=== PATIENT | male | born 1955 | race Caucasian/White ===

== ENCOUNTER → 2018-02-27 | Outpatient (CLI) | payer MEDICARE, OTHER ==
[~2018-02-27] MED LIST: ALLO300T PO; AMLO5TAB2 PO; CARB1TAB22 PO; DONE10TA7 PO; HYDR50TA13 PO; LITH300T3 PO; LITH600C PO; PRIM250T PO; QUET400T PO; RIVA20TA PO; SELE5TAB2 PO; TAMS-11 PO; ZOLP10TA PO; [UNRECOGNIZED DRUG - CODE] PO
[2018-02-27 10:42] LABS: BASOPHILS # (AUTO) 0.05 x10^3/uL (0-0.1); BASOPHILS % (AUTO) 1 % (0-1); EOSINOPHILS # (AUTO) 0.34 x10^3/uL (0-0.4); EOSINOPHILS % (AUTO) 4 % (1-7); LYMPHOCYTES # (AUTO) 1.44 x10^3/uL (1-3.4); LYMPHOCYTES % (AUTO) 16 % (22-44); MD NO; MEAN CORPUSCULAR HEMOGLOBIN 25.3 pg (27.5-34.5); MEAN CORPUSCULAR HGB CONC 32.2 g/dL (33.2-36.2); MEAN CORPUSCULAR VOLUME 78.6 fL (81-97); MEAN PLATELET VOLUME 7.8 fL (7.4-10.4); MONOCYTES # (AUTO) 0.56 x10^3/uL (0.2-0.8); MONOCYTES % (AUTO) 6 % (2-9); NEUTROPHILS # (AUTO) 6.88 x10^3/uL (1.8-6.8); NEUTROPHILS % (AUTO) 74 % (42-75); PLATELET COUNT 499 x10^3/uL (130-400); RED BLOOD COUNT 4.16 x10^6/uL (4.38-5.82); RED CELL DISTRIBUTION WIDTH 17.6 % (9.4-14.8)
[2018-02-27 10:50] LABS: ALANINE AMINOTRANSFERASE 13 U/L (12-78); ANION GAP 8 mmol/L (5-15); CHLORIDE 110 mmol/L (98-107); CREATININE 1.01 mg/dL (0.7-1.3)
[2018-02-27 10:52] LABS: ALKALINE PHOSPHATASE 77 U/L (45-117); BILIRUBIN,TOTAL 0.3 mg/dL (0.2-1.0); TOTAL PROTEIN 7.3 g/dL (6.4-8.2)
== END | disposition home or self-care (01) ==
LOC: STAR 09:06
PROVIDERS: ATTEND Urology
DX: Z01.818 Encounter for other preprocedural examination (principal); E27.5 Adrenomedullary hyperfunction
CPT/HCPCS: 36415; 80053; 85025; 93005

== ENCOUNTER 2018-03-05 10:14 | Inpatient (IN) | payer MEDICARE ==
[~2018-03-05] VITALS: Ht 185.4 cm; Wt 95.4 kg
[~2018-03-05 10:14] MED LIST changes: -AMLO5TAB2 PO; +AMLO5TAB7 PO
[2018-03-05] MEDS ORDERED: hydrOXyzine 50MG TABLET PO PRN (12:30)
[2018-03-05 12:46] LABS: BASOPHILS # (AUTO) 0.06 x10^3/uL (0-0.1); BASOPHILS % (AUTO) 1 % (0-1); EOSINOPHILS # (AUTO) 0.16 x10^3/uL (0-0.4); EOSINOPHILS % (AUTO) 2 % (1-7); LYMPHOCYTES # (AUTO) 1.81 x10^3/uL (1-3.4); LYMPHOCYTES % (AUTO) 21 % (22-44); MD NO; MEAN CORPUSCULAR HEMOGLOBIN 24.7 pg (27.5-34.5); MEAN CORPUSCULAR VOLUME 77.1 fL (81-97); MONOCYTES # (AUTO) 0.47 x10^3/uL (0.2-0.8); MONOCYTES % (AUTO) 5 % (2-9); NEUTROPHILS # (AUTO) 6.32 x10^3/uL (1.8-6.8); NEUTROPHILS % (AUTO) 72 % (42-75); PLATELET COUNT 532 x10^3/uL (130-400); RED BLOOD COUNT 4.07 x10^6/uL (4.38-5.82); RED CELL DISTRIBUTION WIDTH 17.7 % (9.4-14.8)
[2018-03-05 12:53] LABS: INTERNATIONAL NORMALIZED RATIO 1.03 (0.93-1.1); PROTHROMBIN TIME 10.7 Seconds (9.6-11.5)
[2018-03-05 12:54] LABS: ALANINE AMINOTRANSFERASE 21 U/L (12-78); ALBUMIN 3.9 g/dL (3.4-5.0); ANION GAP 6 mmol/L (5-15); CALCIUM 8.9 mg/dL (8.5-10.1); CHLORIDE 110 mmol/L (98-107)
[2018-03-05 12:57] LABS: ALKALINE PHOSPHATASE 83 U/L (45-117); BILIRUBIN,TOTAL 0.3 mg/dL (0.2-1.0); TOTAL PROTEIN 7.2 g/dL (6.4-8.2)
[2018-03-05 13:00] VITALS: BP 150/75
[2018-03-05] MEDS: TAMSULOSIN 0.4 MG CAP.ER.24H PO SCH (13:28)
[2018-03-05] MEDS: DONEPEZIL 10 MG TABLET PO SCH (13:28)
[2018-03-05] MEDS ORDERED: HEPARIN 25,000 UNITS/500ML PMX 500 ML ONE (17:56)
[2018-03-05] MEDS ORDERED: HEPARIN 5,000 UNITS/ML, 1ML IV PRN (18:00)
[2018-03-05] MEDS ORDERED: HEPARIN 25,000 UNITS/500ML PMX 500 ML IV PRN (18:00)
[2018-03-05] MEDS ORDERED: HEPARIN 5,000 UNITS/ML, 1ML IV ONE (18:00)
[2018-03-05] MEDS: PRIMIDONE 250 MG TABLET PO SCH (20:51)
[2018-03-05] MEDS: QUETIAPINE 200 MG TABLET PO SCH (20:51)
[2018-03-05] MEDS: SELEGILINE 5 MG CAPSULE PO SCH (20:53)
[2018-03-05] MEDS: CARBIDOPA/LEVODOPA 25 MG/100 MG TABLET PO SCH (20:54)
[2018-03-06] MEDS ORDERED: [UNRECOGNIZED DRUG - REMARK] MC ONE (01:00)
[2018-03-06 04:00] VITALS: BP 112/65
[2018-03-06 05:07] LABS: BASOPHILS # (AUTO) 0.08 x10^3/uL (0-0.1); BASOPHILS % (AUTO) 1 % (0-1); EOSINOPHILS # (AUTO) 0.26 x10^3/uL (0-0.4); EOSINOPHILS % (AUTO) 3 % (1-7); LYMPHOCYTES # (AUTO) 1.81 x10^3/uL (1-3.4); LYMPHOCYTES % (AUTO) 24 % (22-44); MD NO; MEAN CORPUSCULAR HEMOGLOBIN 24.7 pg (27.5-34.5); MEAN CORPUSCULAR HGB CONC 32.2 g/dL (33.2-36.2); MEAN CORPUSCULAR VOLUME 76.8 fL (81-97); MEAN PLATELET VOLUME 8.7 fL (7.4-10.4); MONOCYTES # (AUTO) 0.61 x10^3/uL (0.2-0.8); MONOCYTES % (AUTO) 8 % (2-9); NEUTROPHILS # (AUTO) 4.97 x10^3/uL (1.8-6.8); NEUTROPHILS % (AUTO) 64 % (42-75); PLATELET COUNT 515 x10^3/uL (130-400); RED BLOOD COUNT 4.02 x10^6/uL (4.38-5.82); RED CELL DISTRIBUTION WIDTH 17.7 % (9.4-14.8)
[2018-03-06 05:16] LABS: CALCIUM 8.8 mg/dL (8.5-10.1); CHLORIDE 111 mmol/L (98-107)
[2018-03-06 05:22] LABS: ALANINE AMINOTRANSFERASE 15 U/L (12-78); ALBUMIN 3.5 g/dL (3.4-5.0); ALKALINE PHOSPHATASE 77 U/L (45-117); ANION GAP 6 mmol/L (5-15); BILIRUBIN,TOTAL 0.3 mg/dL (0.2-1.0); CREATININE 0.99 mg/dL (0.7-1.3); TOTAL PROTEIN 6.4 g/dL (6.4-8.2)
[2018-03-06] MEDS ORDERED: MIDAZOLAM 1 MG/ML, 2ML ONE (06:37)
[2018-03-06] MEDS ORDERED: FENTANYL PF 250 MCG/5ML ONE (06:37)
[2018-03-06] MEDS ORDERED: NITROPRUSSIDE 25 MG/ML, 2ML ONE (06:50)
[2018-03-06] MEDS ORDERED: NITROGLYCERIN 5 MG/ML, 10ML ONE (06:50)
[2018-03-06] MEDS ORDERED: THROMBIN 5,000 UNIT VIAL TP ONE (06:55)
[2018-03-06] MEDS ORDERED: BUPIVACAINE/PF-EPI 0.25% 1:200K ONE ×2 (06:55→08:39)
[2018-03-06] MEDS ORDERED: PHENTOLAMINE MESYLATE 5 MG VIAL IV ONE (07:00)
[2018-03-06] MEDS ORDERED: LIDOCAINE GEL 2%, 5ML ONE (07:02)
[2018-03-06] MEDS ORDERED: ROCURONIUM 10 MG/ML,10ML ONE (07:29)
[2018-03-06] MEDS ORDERED: PROPOFOL 10 MG/ML, 20ML ONE (07:29)
[2018-03-06] MEDS ORDERED: DEXAMETHASONE 4 MG/ML, 1ML ONE (07:29)
[2018-03-06] MEDS ORDERED: NEOSTIGMINE 1 MG/ML, 10ML ONE (07:29)
[2018-03-06] MEDS ORDERED: GLYCOPYRROLATE 0.2MG/1ML, 5ML ONE (07:29)
[2018-03-06] MEDS ORDERED: CEFAZOLIN 1,000 MG ONE (07:29)
[2018-03-06] MEDS ORDERED: ONDANSETRON 2MG/ML, 2ML ONE (07:29)
[2018-03-06] MEDS: CARBIDOPA/LEVODOPA 25 MG/100 MG TABLET PO SCH ×2 (07:34→21:00)
[2018-03-06] MEDS: DONEPEZIL 10 MG TABLET PO SCH (07:34)
[2018-03-06] MEDS: ALLOPURINOL 300 MG TABLET PO SCH (09:00)
[2018-03-06] MEDS: TAMSULOSIN 0.4 MG CAP.ER.24H PO SCH (09:00)
[2018-03-06] MEDS ORDERED: HYDROmorphone 1 MG/ML, 1ML IV PRN (10:30)
[2018-03-06] MEDS ORDERED: MIDAZOLAM 1 MG/ML, 2ML IV PRN (10:30)
[2018-03-06] MEDS ORDERED: ACETAMINOPHEN 325 MG TABLET PO PRN (10:30)
[2018-03-06] MEDS ORDERED: PROMETHAZINE 25 MG/ML, 1ML IV PRN (10:30)
[2018-03-06] MEDS ORDERED: MEPERIDINE/PF 25MG/0.5ML IVPush PRN (10:30)
[2018-03-06] MEDS ORDERED: OXYcodone 5 MG/5 ML ORAL.SOL UDC PO PRN (10:30)
[2018-03-06] MEDS ORDERED: ONDANSETRON ODT 8 MG PO PRN (10:30)
[2018-03-06] MEDS ORDERED: LABETALOL 5MG/ML, 20ML IV PRN (10:30)
[2018-03-06] MEDS ORDERED: LABETALOL 5MG/ML, 20ML ONE (11:01)
[2018-03-06] MEDS ORDERED: OXYcodone 5 MG/5 ML ORAL.SOL UDC ONE (11:10)
[2018-03-06] MEDS ORDERED: FENTANYL PF 100 MCG/2ML ONE (11:10)
[2018-03-06] MEDS: FENTANYL PF 100 MCG/2ML IV PRN ×2 (11:13→11:45)
[2018-03-06] MEDS ORDERED: ONDANSETRON 2MG/ML, 2ML IV PRN (12:30)
[2018-03-06] MEDS ORDERED: D5%-0.45NACL+KCL 20MEQ 1,000 ML IV SCH (12:30)
[2018-03-06] MEDS: KETOROLAC 30 MG/1 ML IV SCH ×2 (12:44→16:47)
[2018-03-06] MEDS: morphine SULFATE 10 MG/ML, 1ML IV PRN ×3 (13:30→21:02)
[2018-03-06] MEDS: CEFAZOLIN PMX 1GM/50ML 50 ML IVPB SCH ×2 (13:34→20:44)
[2018-03-06] MEDS: HYDROcodone/APAP 5/325 TABLET PO PRN (16:47)
[2018-03-06] MEDS: QUETIAPINE 200 MG TABLET PO SCH (20:50)
[2018-03-06] MEDS: SELEGILINE 5 MG CAPSULE PO SCH (20:50)
[2018-03-06] MEDS: PRIMIDONE 250 MG TABLET PO SCH (20:51)
[2018-03-06] MEDS: LITHIUM CARBONATE 300 MG CAPSULE PO SCH (20:51)
[2018-03-06] MEDS ORDERED: CARBIDOPA/LEVODOPA 25 MG/100 MG TABLET PO SCH (21:00)
[2018-03-06] MEDS ORDERED: PHENOXYBENZAMINE PO SCH (21:00)
[2018-03-06] MEDS: ZOLPIDEM 10MG TABLET PO PRN (21:39)
[2018-03-07] MEDS: KETOROLAC 30 MG/1 ML IV SCH ×5 (00:59→23:37)
[2018-03-07] MEDS: HYDROcodone/APAP 5/325 TABLET PO PRN ×4 (03:46→17:35)
[2018-03-07 04:00] VITALS: BP 110/62
[2018-03-07 05:38] LABS: ANION GAP 9 mmol/L (5-15); CHLORIDE 104 mmol/L (98-107); CREATININE 1.05 mg/dL (0.7-1.3)
[2018-03-07] MEDS: LITHIUM CARBONATE 300 MG CAPSULE PO SCH ×2 (08:05→20:40)
[2018-03-07] MEDS: CARBIDOPA/LEVODOPA 25 MG/100 MG TABLET PO SCH ×2 (08:05→20:39)
[2018-03-07] MEDS: TAMSULOSIN 0.4 MG CAP.ER.24H PO SCH (08:05)
[2018-03-07] MEDS: DONEPEZIL 10 MG TABLET PO SCH (08:05)
[2018-03-07] MEDS: ALLOPURINOL 300 MG TABLET PO SCH (08:05)
[2018-03-07] MEDS ORDERED: AMLODIPINE 5 MG TABLET PO SCH (09:00)
[2018-03-07] MEDS: RIVAROXABAN 20 MG TABLET PO SCH (13:33)
[2018-03-07 13:39] VITALS: BP 112/68
[2018-03-07 20:34] VITALS: BP 148/77
[2018-03-07] MEDS: QUETIAPINE 200 MG TABLET PO SCH (20:39)
[2018-03-07] MEDS: PRIMIDONE 250 MG TABLET PO SCH (20:39)
[2018-03-07] MEDS: SELEGILINE 5 MG CAPSULE PO SCH (20:40)
[2018-03-07] MEDS: OXYcodone/APAP 5/325MG TABLET PO PRN (21:32)
[2018-03-07] MEDS: ZOLPIDEM 10MG TABLET PO PRN (22:32)
[2018-03-08 03:48] VITALS: BP 117/66
[2018-03-08 05:31] LABS: ANION GAP 4 mmol/L (5-15); CALCIUM 8.3 mg/dL (8.5-10.1); CHLORIDE 108 mmol/L (98-107); CREATININE 1.02 mg/dL (0.7-1.3)
[2018-03-08] MEDS: KETOROLAC 30 MG/1 ML IV SCH (06:10)
[2018-03-08] MEDS: RIVAROXABAN 20 MG TABLET PO SCH (06:11)
[2018-03-08] MEDS: OXYcodone/APAP 5/325MG TABLET PO PRN ×4 (06:11→20:04)
[2018-03-08] MEDS: TAMSULOSIN 0.4 MG CAP.ER.24H PO SCH (07:59)
[2018-03-08] MEDS: CARBIDOPA/LEVODOPA 25 MG/100 MG TABLET PO SCH ×2 (08:00→20:04)
[2018-03-08] MEDS: DONEPEZIL 10 MG TABLET PO SCH (08:00)
[2018-03-08] MEDS: LITHIUM CARBONATE 300 MG CAPSULE PO SCH ×2 (08:00→20:03)
[2018-03-08] MEDS: AMLODIPINE 5 MG TABLET PO SCH (08:00)
[2018-03-08] MEDS: ALLOPURINOL 300 MG TABLET PO SCH (08:02)
[2018-03-08] MEDS: ONDANSETRON ODT 4 MG PO PRN ×3 (11:05→20:04)
[2018-03-08] MEDS ORDERED: TETRAHYDROZOLINE OPHTH 0.05% 15ML EACHEYE PRN (20:00)
[2018-03-08] MEDS ORDERED: PRIMIDONE 50 MG TABLET ONE (20:01)
[2018-03-08] MEDS: DOCUSATE 100 MG CAPSULE PO SCH (20:03)
[2018-03-08] MEDS: SELEGILINE 5 MG CAPSULE PO SCH (20:03)
[2018-03-08] MEDS: PRIMIDONE 250 MG TABLET PO SCH (20:04)
[2018-03-08] MEDS: QUETIAPINE 200 MG TABLET PO SCH (20:10)
[2018-03-08] MEDS ORDERED: NAPHAZOLINE/PHENIRAMINE OPHTH EACHEYE PRN (22:00)
[2018-03-09] MEDS: OXYcodone/APAP 5/325MG TABLET PO PRN ×3 (01:02→10:43)
[2018-03-09] MEDS: ONDANSETRON ODT 4 MG PO PRN ×3 (01:03→10:43)
[2018-03-09] MEDS ORDERED: ALBUTEROL/IPRATROPIUM 2.5MG/0.5MG, 3 ML ONE (04:07)
[2018-03-09 05:20] VITALS: BP 119/66
[2018-03-09] MEDS: RIVAROXABAN 20 MG TABLET PO SCH (05:51)
[2018-03-09] MEDS ORDERED: OXYC-302 PO (09:55)
[2018-03-09] MEDS: DOCUSATE 100 MG CAPSULE PO SCH (09:56)
[2018-03-09] MEDS: TAMSULOSIN 0.4 MG CAP.ER.24H PO SCH (09:56)
[2018-03-09] MEDS: LITHIUM CARBONATE 300 MG CAPSULE PO SCH (09:56)
[2018-03-09] MEDS: ALLOPURINOL 300 MG TABLET PO SCH (09:56)
[2018-03-09] MEDS ORDERED: ONDA4TAB7 PO (09:56)
[2018-03-09] MEDS: AMLODIPINE 5 MG TABLET PO SCH (09:56)
[2018-03-09] MEDS: CARBIDOPA/LEVODOPA 25 MG/100 MG TABLET PO SCH (09:56)
[2018-03-09] MEDS: DONEPEZIL 10 MG TABLET PO SCH (09:57)
== END 2018-03-09 11:04 | disposition home or self-care (01) | DRG 614 ==
LOC: CCU 10:14 → 4NOR 03-07 13:30
PROVIDERS: ADMIT Urology; ATTEND Urology
PROC: 8E0W4CZ Robotic Assisted Procedure of Trunk Region, Percutaneous Endoscopic Approach (ICD-10-PCS; 2018-03-06)
PROC: 03HY32Z Insertion of Monitoring Device into Upper Artery, Percutaneous Approach (ICD-10-PCS; 2018-03-06)
PROC: 4A133B1 Monitoring of Arterial Pressure, Peripheral, Percutaneous Approach (ICD-10-PCS; 2018-03-06)
PROC: 4A133J1 Monitoring of Arterial Pulse, Peripheral, Percutaneous Approach (ICD-10-PCS; 2018-03-06)
PROC: 0GB34ZZ Excision of Right Adrenal Gland, Percutaneous Endoscopic Approach (ICD-10-PCS; principal; 2018-03-06 07:30)
DX: D35.01 Benign neoplasm of right adrenal gland (principal); R71.0 Precipitous drop in hematocrit; I10 Essential (primary) hypertension; F31.9 Bipolar disorder, unspecified; G20 Parkinson's disease; K59.00 Constipation, unspecified; K66.0 Peritoneal adhesions (postprocedural) (postinfection); K82.8 Other specified diseases of gallbladder; Z86.711 Personal history of pulmonary embolism; Z86.718 Personal history of other venous thrombosis and embolism; Z90.49 Acquired absence of other specified parts of digestive tract
CPT/HCPCS: 36415; 71045; 80048; 80053; 83735; 84100; 85014; 85018; 85025; 85520; 85610; 87081; 88307; 93005; 93970; G0378; J0690; J1100; J1644; J1885; J2250; J2405; J2704; J2710; J3010; J3490; Q0162; J2270; J3480; J7050

== ENCOUNTER 2018-05-21 14:55 | Emergency (ER) | payer MEDICARE ==
[~2018-05-21] VITALS: Ht 185.4 cm; Wt 100.0 kg
[~2018-05-21 14:55] MED LIST changes: +ONDA4TAB7 PO; +OXYC-302 PO
[2018-05-21 14:59] VITALS: BP 131/95
== END 2018-05-21 15:42 | disposition home or self-care (01) ==
LOC: ED 15:36
DX: F39 Unspecified mood [affective] disorder (principal); I10 Essential (primary) hypertension
CPT/HCPCS: 99284

== ENCOUNTER 2018-09-09 17:34 | Inpatient (IN) | payer MEDICARE ==
[~2018-09-09] VITALS: Ht 188 cm; Wt 93.4 kg
[~2018-09-09 17:34] MED LIST changes: +AMLO-150 PO; -AMLO5TAB7 PO
--- NOTE | 2018-09-09 18:20 | NUR ---
BIB [facility] W/ CO ETOH AND DESIRE FOR DETOX. PER FRIEND, PT W/ EXTENSIVE PSYCH HX, HX OF HEAVY ETOH AND HX OF RESPIRATORY FAILURE W/ ETOH DETOX. PT REPORTS NON-COMPLIANT WITH ALL MEDS X 'TWENTY DAYS' NO SIGNS OF RESPIRATORY DISTRESS PRESENTLY. PT AWAKE/ALERT, BUT FORGETFUL, SPEAKING IN FULL SENTENCES. PT AMBULATORY, NON-TREMULOUS, NOT TACHY. PT FREQUENTLY AGGITATED AND HAS PERIODS OF HITTING HIMSELF ON HIS HEAD. BP/SPO2/ECG MONITORING IN PLACE. PT GROWS AGGITATED WITH BP MONITORING, UNABLE TO TAKE ORAL TEMP AT THIS TIME.
[2018-09-09] MEDS ORDERED: LORazepam 2 MG/ML, 1ML ONE ×2 (18:25→19:08)
[2018-09-09] MEDS ORDERED: THIAMINE 100MG TABLET ONE (18:26)
[2018-09-09] MEDS: LORazepam 2 MG/ML, 1ML IVPush PRN ×2 (18:29→19:11)
[2018-09-09] MEDS ORDERED: THIAMINE 100MG TABLET PO ONE (18:30)
[2018-09-09] MEDS ORDERED: SODIUM CHLORIDE FLUSH 10ML SYR IVF ONE (18:30)
--- NOTE | 2018-09-09 18:30 | NUR ---
PT MEDICATED PER EMAR FOR AGGITATION.
[2018-09-09 18:32] LABS: BASOPHILS # (AUTO) 0.03 x10^3/uL (0-0.1); BASOPHILS % (AUTO) 0 % (0-1); EOSINOPHILS # (AUTO) 0.33 x10^3/uL (0-0.4); EOSINOPHILS % (AUTO) 4 % (1-7); LYMPHOCYTES # (AUTO) 2.91 x10^3/uL (1-3.4); LYMPHOCYTES % (AUTO) 35 % (22-44); MD NO; MEAN CORPUSCULAR HEMOGLOBIN 28.6 pg (27.5-34.5); MEAN CORPUSCULAR HGB CONC 33.7 g/dL (33.2-36.2); MEAN CORPUSCULAR VOLUME 84.9 fL (81-97); MEAN PLATELET VOLUME 7.4 fL (7.4-10.4); MONOCYTES # (AUTO) 0.41 x10^3/uL (0.2-0.8); MONOCYTES % (AUTO) 5 % (2-9); NEUTROPHILS # (AUTO) 4.56 x10^3/uL (1.8-6.8); NEUTROPHILS % (AUTO) 55 % (42-75); PLATELET COUNT 458 x10^3/uL (130-400); RED BLOOD COUNT 5.05 x10^6/uL (4.38-5.82); RED CELL DISTRIBUTION WIDTH 17.3 % (9.4-14.8)
[2018-09-09 18:37] LABS: MICROSCOPIC AUTO
[2018-09-09 18:42] LABS: ACETAMINOPHEN < 2 mcg/mL (10-30); ALANINE AMINOTRANSFERASE 71 U/L (12-78); ALBUMIN 4.1 g/dL (3.4-5.0); ANION GAP 8 mmol/L (5-15); CALCIUM 8.2 mg/dL (8.5-10.1); CHLORIDE 115 mmol/L (98-107); CREATININE 0.93 mg/dL (0.7-1.3); SALICYLATE LEVEL < 1.7 mg/dL (2.8-20.0)
[2018-09-09 18:43] LABS: CULTURE INDICATED? YES
[2018-09-09 18:47] LABS: AMPHETAMINE SCREEN, URINE Negative (Negative); BARBITURATE SCREEN, URINE Negative (Negative); BENZODIAZEPINE SCREEN, URINE Negative (Negative); CANNABINOID SCREEN, URINE Negative (Negative); COCAINE SCREEN, URINE Negative (Negative); METHADONE SCREEN, URINE Negative (Negative)
[2018-09-09 18:48] LABS: ALKALINE PHOSPHATASE 128 U/L (45-117); BILIRUBIN,TOTAL 0.4 mg/dL (0.2-1.0); TOTAL PROTEIN 7.4 g/dL (6.4-8.2)
[2018-09-09 18:51] LABS: OPIATE SCREEN, URINE Negative (Negative)
[2018-09-09] MEDS ORDERED: QUET400T PO (18:51)
--- NOTE | 2018-09-09 19:14 | NUR ---
PT MEDICATED PER EMAR FOR CONTINUED AGGITATION. SPO2 >90% ON RA. RR WNL.
[2018-09-09] MEDS ORDERED: SODIUM CHLORIDE 0.9% 1,000 ML IV ONE (19:24)
[2018-09-09] MEDS ORDERED: SODIUM CHLORIDE FLUSH 10ML SYR IVF PRN (19:30)
--- NOTE | 2018-09-09 19:51 | NUR ---
IVF HUNG. PT MOSTLY SLEEPY, EVEN/REGULAR RESPIRATIONS NOTED. PT SPO2 80'S ON RA. PT PLACED ON 3L BY NC W IMMEDIATE IMPROVEMENT IN SPO2. PT ARROUSABLE TO PHYSICAL STIM
--- NOTE | 2018-09-09 20:23 | NUR ---
PT REMOVED ALL MONITORING AND IS STANDING AT BEDSIDE, STEADILY, REQUESTING FOOD. PT ASSISTED BACK TO [facility], FOOD PROVIDED. SPO2/ECG MONITORING RE-APPLIED. FALL PRECAUTIONS REVIEWED WITH PT.
[2018-09-09 21:43] VITALS: BP 137/84
[2018-09-09] MEDS ORDERED: LORazepam 2 MG/ML, 1ML IVPush ONE (22:30)
[2018-09-09] MEDS ORDERED: POLYETHYLENE GLYCOL 17 GM PACKET PO PRN (23:00)
[2018-09-09] MEDS ORDERED: ONDANSETRON 2MG/ML, 2ML IVPush PRN (23:00)
[2018-09-09] MEDS ORDERED: hydrALAzine 20 MG/ML, 1ML IVPush PRN (23:00)
[2018-09-09] MEDS ORDERED: HALOPERIDOL 5 MG/ML IV PRN (23:00)
[2018-09-09] MEDS ORDERED: ACETAMINOPHEN 325 MG TABLET PO PRN (23:00)
[2018-09-09] MEDS: LITHIUM 300 MG MC SCH (23:30)
[2018-09-09] MEDS: SELEGILINE 5 MG CAPSULE PO SCH (23:46)
[2018-09-09] MEDS: ENOXAPARIN 40 MG/0.4 ML SQ SCH (23:46)
[2018-09-10] MEDS ORDERED: POTASSIUM CHLORIDE 20 MEQ, MAGNESIUM SULFATE 1 GM, THIAMINE 200 MG, FOLIC ACID 1 MG, MV... IV SCH (04:00)
[2018-09-10 04:27] VITALS: BP 164/78
[2018-09-10] MEDS ORDERED: LORazepam 2 MG/ML, 1ML IV PRN (04:30)
[2018-09-10] MEDS ORDERED: LORazepam 1MG TABLET PO PRN (04:30)
[2018-09-10] MEDS: LORazepam 2 MG/ML, 1ML IV PRN ×4 (04:42→22:37)
[2018-09-10 05:23] LABS: BASOPHILS # (AUTO) 0.16 x10^3/uL (0-0.1); BASOPHILS % (AUTO) 2 % (0-1); EOSINOPHILS # (AUTO) 0.21 x10^3/uL (0-0.4); EOSINOPHILS % (AUTO) 3 % (1-7); LYMPHOCYTES # (AUTO) 2.62 x10^3/uL (1-3.4); LYMPHOCYTES % (AUTO) 37 % (22-44); MD NO; MEAN CORPUSCULAR HEMOGLOBIN 28.4 pg (27.5-34.5); MEAN CORPUSCULAR HGB CONC 33.5 g/dL (33.2-36.2); MEAN CORPUSCULAR VOLUME 84.8 fL (81-97); MONOCYTES # (AUTO) 0.42 x10^3/uL (0.2-0.8); MONOCYTES % (AUTO) 6 % (2-9); NEUTROPHILS # (AUTO) 3.72 x10^3/uL (1.8-6.8); NEUTROPHILS % (AUTO) 52 % (42-75); PLATELET COUNT 367 x10^3/uL (130-400); RED BLOOD COUNT 4.66 x10^6/uL (4.38-5.82); RED CELL DISTRIBUTION WIDTH 16.9 % (9.4-14.8)
[2018-09-10 05:36] LABS: CALCIUM 8.1 mg/dL (8.5-10.1); CHLORIDE 112 mmol/L (98-107)
[2018-09-10 05:42] LABS: ALANINE AMINOTRANSFERASE 60 U/L (12-78); ALBUMIN 3.4 g/dL (3.4-5.0); ALKALINE PHOSPHATASE 116 U/L (45-117); ANION GAP 8 mmol/L (5-15); BILIRUBIN,TOTAL 0.5 mg/dL (0.2-1.0); TOTAL PROTEIN 6.6 g/dL (6.4-8.2)
[2018-09-10] MEDS: LITHIUM 300 MG MC SCH (07:30)
[2018-09-10 07:32] VITALS: BP 173/90
[2018-09-10] MEDS: TEMPLATE NON-FORMULARY MED. (Quetiapine Fumarate** 400 MG) PO SCH (08:32)
[2018-09-10] MEDS: TAMSULOSIN 0.4 MG CAP.ER.24H PO SCH (08:37)
[2018-09-10] MEDS: AMLODIPINE 5 MG TABLET PO SCH (08:37)
[2018-09-10] MEDS: ALLOPURINOL 300 MG TABLET PO SCH (08:37)
[2018-09-10] MEDS: CARBIDOPA/LEVODOPA 25 MG/100 MG TABLET PO SCH ×2 (08:37→20:44)
[2018-09-10] MEDS: LORazepam 1MG TABLET PO PRN (08:43)
[2018-09-10] MEDS ORDERED: LITHIUM CARBONATE 300 MG TABLET.ER PO SCH ×2 (09:00→21:00)
[2018-09-10] MEDS: LITHIUM CARBONATE 300 MG TABLET.ER PO SCH ×2 (11:11→20:43)
[2018-09-10 13:50] VITALS: BP 153/79
[2018-09-10 18:54] VITALS: BP 159/82
[2018-09-10] MEDS: SELEGILINE 5 MG CAPSULE PO SCH (20:43)
[2018-09-10] MEDS: QUETIAPINE 200 MG TABLET PO SCH (20:43)
[2018-09-10] MEDS: DONEPEZIL 10 MG TABLET PO SCH (20:43)
[2018-09-10] MEDS: THIAMINE 100MG TABLET PO SCH (20:43)
[2018-09-10] MEDS: hydrOXyzine 50MG TABLET PO SCH (20:44)
[2018-09-10] MEDS: PRIMIDONE 250 MG TABLET PO SCH (20:44)
[2018-09-10] MEDS: ENOXAPARIN 40 MG/0.4 ML SQ SCH (22:58)
[2018-09-11] MEDS: LORazepam 2 MG/ML, 1ML IV PRN ×5 (00:30→22:19)
[2018-09-11] MEDS ORDERED: LORazepam 2 MG/ML, 1ML IV PRN (00:30)
[2018-09-11 01:25] VITALS: BP 128/71
[2018-09-11] MEDS: TEMPLATE NON-FORMULARY MED. (Quetiapine Fumarate** 400 MG) PO SCH (07:21)
[2018-09-11] MEDS ORDERED: SODIUM CHLORIDE 0.9%, 500ML IVBOLUS ONE (11:30)
[2018-09-11] MEDS: SODIUM CHLORIDE 0.9% 1,000 ML IV SCH ×2 (12:50→19:30)
[2018-09-11] MEDS: LITHIUM CARBONATE 300 MG TABLET.ER PO SCH ×2 (13:06→20:31)
[2018-09-11] MEDS: CARBIDOPA/LEVODOPA 25 MG/100 MG TABLET PO SCH ×2 (13:09→20:31)
[2018-09-11] MEDS: CHLORDIAZEPOXIDE 25 MG CAPSULE PO SCH ×2 (13:09→17:33)
[2018-09-11] MEDS: AMLODIPINE 5 MG TABLET PO SCH (13:10)
[2018-09-11] MEDS: FOLIC ACID 1 MG TABLET PO SCH (13:10)
[2018-09-11] MEDS: MULTIVITAMIN 1 TABLET PO SCH (13:10)
[2018-09-11] MEDS: ALLOPURINOL 300 MG TABLET PO SCH (13:11)
[2018-09-11] MEDS: THIAMINE 100MG TABLET PO SCH ×2 (13:16→20:31)
[2018-09-11] MEDS: TAMSULOSIN 0.4 MG CAP.ER.24H PO SCH (13:16)
[2018-09-11 15:04] VITALS: BP 151/83
[2018-09-11 17:03] VITALS: BP 157/89
[2018-09-11 18:55] VITALS: BP 150/92
[2018-09-11] MEDS: DONEPEZIL 10 MG TABLET PO SCH (20:31)
[2018-09-11] MEDS: hydrOXyzine 50MG TABLET PO SCH (20:31)
[2018-09-11] MEDS: SELEGILINE 5 MG CAPSULE PO SCH (20:31)
[2018-09-11] MEDS: PRIMIDONE 250 MG TABLET PO SCH (20:31)
[2018-09-11] MEDS: QUETIAPINE 200 MG TABLET PO SCH (20:31)
[2018-09-11] MEDS: ENOXAPARIN 40 MG/0.4 ML SQ SCH (22:45)
[2018-09-12] MEDS: CHLORDIAZEPOXIDE 25 MG CAPSULE PO SCH ×4 (00:27→20:04)
[2018-09-12] MEDS: LORazepam 2 MG/ML, 1ML IV PRN ×3 (02:28→21:30)
[2018-09-12 07:09] VITALS: BP 154/84
[2018-09-12] MEDS: TEMPLATE NON-FORMULARY MED. (Quetiapine Fumarate** 400 MG) PO SCH (09:00)
[2018-09-12] MEDS: MULTIVITAMIN 1 TABLET PO SCH (11:09)
[2018-09-12] MEDS: ALLOPURINOL 300 MG TABLET PO SCH (11:10)
[2018-09-12] MEDS: FOLIC ACID 1 MG TABLET PO SCH (11:10)
[2018-09-12] MEDS: AMLODIPINE 5 MG TABLET PO SCH (11:10)
[2018-09-12] MEDS: LITHIUM CARBONATE 300 MG TABLET.ER PO SCH ×2 (11:10→20:03)
[2018-09-12] MEDS: CARBIDOPA/LEVODOPA 25 MG/100 MG TABLET PO SCH ×2 (11:10→20:04)
[2018-09-12] MEDS: THIAMINE 100MG TABLET PO SCH ×2 (11:10→20:03)
[2018-09-12] MEDS: TAMSULOSIN 0.4 MG CAP.ER.24H PO SCH (11:10)
[2018-09-12 12:59] LABS: CULTURE INDICATED? YES; MICROSCOPIC INDICATED
[2018-09-12 13:29] VITALS: BP 133/79
[2018-09-12 14:21] LABS: CHLORIDE 108 mmol/L (98-107)
[2018-09-12 14:29] LABS: ALANINE AMINOTRANSFERASE 15 U/L (12-78); ALBUMIN 3.2 g/dL (3.4-5.0); ALKALINE PHOSPHATASE 100 U/L (45-117); ANION GAP 6 mmol/L (5-15); BILIRUBIN,TOTAL 0.8 mg/dL (0.2-1.0); CALCIUM 8.4 mg/dL (8.5-10.1); CREATININE 0.93 mg/dL (0.7-1.3); TOTAL PROTEIN 6.2 g/dL (6.4-8.2)
[2018-09-12] MEDS: SODIUM CHLORIDE 0.9% 1,000 ML IV SCH (16:14)
[2018-09-12 18:31] VITALS: BP 152/73
[2018-09-12] MEDS: QUETIAPINE 200 MG TABLET PO SCH (20:02)
[2018-09-12] MEDS: hydrOXyzine 50MG TABLET PO SCH (20:02)
[2018-09-12] MEDS: SELEGILINE 5 MG CAPSULE PO SCH (20:03)
[2018-09-12] MEDS: PRIMIDONE 250 MG TABLET PO SCH (20:03)
[2018-09-12] MEDS: DONEPEZIL 10 MG TABLET PO SCH (20:03)
[2018-09-12] MEDS: ENOXAPARIN 40 MG/0.4 ML SQ SCH (20:04)
[2018-09-13] MEDS: SODIUM CHLORIDE 0.9% 1,000 ML IV SCH ×2 (00:20→17:10)
[2018-09-13 02:00] VITALS: BP 133/67
[2018-09-13] MEDS: CHLORDIAZEPOXIDE 25 MG CAPSULE PO SCH ×4 (05:30→20:34)
[2018-09-13 06:43] VITALS: BP 133/78
[2018-09-13 07:23] LABS: CULTURE INDICATED? YES; MICROSCOPIC INDICATED
[2018-09-13] MEDS: TEMPLATE NON-FORMULARY MED. (Quetiapine Fumarate** 400 MG) PO SCH (09:00)
[2018-09-13] MEDS: TAMSULOSIN 0.4 MG CAP.ER.24H PO SCH (11:17)
[2018-09-13] MEDS: FOLIC ACID 1 MG TABLET PO SCH (11:18)
[2018-09-13] MEDS: LITHIUM CARBONATE 300 MG TABLET.ER PO SCH ×2 (11:19→20:35)
[2018-09-13] MEDS: SULFAMETH./TRIMETHOPRIM DS 800MG/160MG TABLET PO SCH ×2 (11:20→20:35)
[2018-09-13] MEDS: LORazepam 1MG TABLET PO PRN (11:20)
[2018-09-13] MEDS: ALLOPURINOL 300 MG TABLET PO SCH (11:21)
[2018-09-13] MEDS: AMLODIPINE 5 MG TABLET PO SCH (11:23)
[2018-09-13] MEDS: CARBIDOPA/LEVODOPA 25 MG/100 MG TABLET PO SCH ×2 (11:24→20:35)
[2018-09-13] MEDS: MULTIVITAMIN 1 TABLET PO SCH (11:25)
[2018-09-13] MEDS: THIAMINE 100MG TABLET PO SCH ×2 (11:26→20:35)
[2018-09-13 13:57] VITALS: BP 121/72
[2018-09-13 19:08] VITALS: BP 149/80
[2018-09-13] MEDS: QUETIAPINE 200 MG TABLET PO SCH (20:34)
[2018-09-13] MEDS: DONEPEZIL 10 MG TABLET PO SCH (20:34)
[2018-09-13] MEDS: SELEGILINE 5 MG CAPSULE PO SCH (20:34)
[2018-09-13] MEDS: PRIMIDONE 250 MG TABLET PO SCH (20:35)
[2018-09-13] MEDS: ENOXAPARIN 40 MG/0.4 ML SQ SCH (20:36)
[2018-09-13] MEDS: hydrOXyzine 50MG TABLET PO SCH (20:38)
[2018-09-14 01:50] VITALS: BP 123/71
[2018-09-14] MEDS: CHLORDIAZEPOXIDE 25 MG CAPSULE PO SCH (06:00)
[2018-09-14] MEDS: SODIUM CHLORIDE 0.9% 1,000 ML IV SCH (07:00)
[2018-09-14 07:17] VITALS: BP 121/76
[2018-09-14] MEDS: SULFAMETH./TRIMETHOPRIM DS 800MG/160MG TABLET PO SCH (08:38)
[2018-09-14] MEDS: ALLOPURINOL 300 MG TABLET PO SCH (08:39)
[2018-09-14] MEDS: MULTIVITAMIN 1 TABLET PO SCH (08:39)
[2018-09-14] MEDS: LITHIUM CARBONATE 300 MG TABLET.ER PO SCH (08:39)
[2018-09-14] MEDS: AMLODIPINE 5 MG TABLET PO SCH (08:42)
[2018-09-14] MEDS: TEMPLATE NON-FORMULARY MED. (Quetiapine Fumarate** 400 MG) PO SCH (08:43)
[2018-09-14] MEDS: FOLIC ACID 1 MG TABLET PO SCH (08:43)
[2018-09-14] MEDS: TAMSULOSIN 0.4 MG CAP.ER.24H PO SCH (08:43)
[2018-09-14] MEDS: THIAMINE 100MG TABLET PO SCH (08:44)
[2018-09-14] MEDS: CARBIDOPA/LEVODOPA 25 MG/100 MG TABLET PO SCH (08:44)
[2018-09-14] MEDS ORDERED: SULF-169 PO (10:35)
[2018-09-14] MEDS ORDERED: FOLI-17 PO (10:35)
[2018-09-14] MEDS ORDERED: THIA100T67 PO (10:35)
== END 2018-09-14 12:27 | disposition home or self-care (01) | DRG 689 ==
LOC: ED 18:42 → EDIP 19:24 → 4WST 21:30 → DCLOUNGE 09-14 11:59
PROVIDERS: ADMIT Family Medicine; ATTEND Family Medicine
PROC: 0T9B70Z Drainage of Bladder with Drainage Device, Via Natural or Artificial Opening (ICD-10-PCS; principal; 2018-09-12)
DX: N39.0 Urinary tract infection, site not specified (principal); K85.20 Alcohol induced acute pancreatitis without necrosis or infection; F10.221 Alcohol dependence with intoxication delirium; E87.2 Acidosis; F10.239 Alcohol dependence with withdrawal, unspecified; B95.8 Unspecified staphylococcus as the cause of diseases classified elsewhere; E86.0 Dehydration; F03.90 Unspecified dementia, unspecified severity, without behavioral disturbance, psychotic disturbance, mood disturbance, and anxiety; F31.9 Bipolar disorder, unspecified; F41.1 Generalized anxiety disorder; I10 Essential (primary) hypertension; N40.0 Benign prostatic hyperplasia without lower urinary tract symptoms; Z23 Encounter for immunization; G20 Parkinson's disease
CPT/HCPCS: 36415; 70450; 71045; 80053; 80178; 80307; 80329; 81001; 82140; 83690; 83735; 84100; 85025; 87077; 87086; 87186; 90656; 93005; 96374; 96376; 99285; G0378; J1650; J3411; J3475; J3480; G0480; J1630; J2060; J7030; J7040

== ENCOUNTER 2018-12-02 18:47 | Inpatient (IN) | payer MEDICARE ==
[~2018-12-02] VITALS: Ht 188 cm; Wt 91.7 kg
[~2018-12-02 18:47] MED LIST changes: +ACAM333T7 PO; +FOLI-17 PO; +LORA-445 PO; +SULF-169 PO; +THIA100T67 PO; +TRAZ150T62 PO; +TRAZ50TA66 PO
[2018-12-02 19:19] LABS: BASOPHILS # (AUTO) 0.18 x10^3/uL (0-0.1); BASOPHILS % (AUTO) 2 % (0-1); EOSINOPHILS # (AUTO) 0.15 x10^3/uL (0-0.4); EOSINOPHILS % (AUTO) 1 % (1-7); LYMPHOCYTES # (AUTO) 3.01 x10^3/uL (1-3.4); LYMPHOCYTES % (AUTO) 27 % (22-44); MD NO; MEAN CORPUSCULAR HEMOGLOBIN 28.5 pg (27.5-34.5); MEAN CORPUSCULAR HGB CONC 32.5 g/dL (33.2-36.2); MEAN CORPUSCULAR VOLUME 87.8 fL (81-97); MEAN PLATELET VOLUME 7.5 fL (7.4-10.4); MONOCYTES # (AUTO) 1.08 x10^3/uL (0.2-0.8); MONOCYTES % (AUTO) 10 % (2-9); NEUTROPHILS # (AUTO) 6.94 x10^3/uL (1.8-6.8); NEUTROPHILS % (AUTO) 61 % (42-75); PLATELET COUNT 543 x10^3/uL (130-400); RED BLOOD COUNT 5.17 x10^6/uL (4.38-5.82); RED CELL DISTRIBUTION WIDTH 16.5 % (9.4-14.8)
[2018-12-02 19:25] LABS: ALANINE AMINOTRANSFERASE 72 U/L (12-78); ALBUMIN 4.1 g/dL (3.4-5.0); ANION GAP 13 mmol/L (5-15); CALCIUM 8.5 mg/dL (8.5-10.1); CHLORIDE 115 mmol/L (98-107); CREATININE 1.52 mg/dL (0.7-1.3)
[2018-12-02 19:28] LABS: ALKALINE PHOSPHATASE 91 U/L (45-117); BILIRUBIN,TOTAL 0.6 mg/dL (0.2-1.0); TOTAL PROTEIN 7.7 g/dL (6.4-8.2)
[2018-12-02 19:29] LABS: SALICYLATE LEVEL < 1.7 mg/dL (2.8-20.0)
--- NOTE | 2018-12-02 20:08 | NUR ---
PT BROUGHT IN BY FRIEND. PT WAS DISCHARGED FROM [facility] SUNDAY. PT HAS NOT BEEN TAKING MEDS AND HAS BEEN DRINKING ALL WEEKEND. PT STATES HE IS NOT SUICIDAL. PT STATES HE CAME HERE BECAUSE HE NEEDS MENTAL HELP AND THAT HE DOES NOT LIKE HIMSELF RIGHT NOW.
[2018-12-02] MEDS ORDERED: POTASSIUM CHLORIDE 20 MEQ TAB.ER.PRT PO ONE (20:30)
--- NOTE | 2018-12-02 20:47 | NUR ---
TP: TELE PSYCH WHEN SOBER
--- NOTE | 2018-12-02 21:09 | NUR ---
ER MD IN ROOM EXAMINING PT AND TALKING TO HIM ABOUT RECENT HOSPITALIZATION AND WHAT PT DID SINCE DISCHARGE. PT AGITATED WITH ER MD. UOB TO GIVE URINE SAMPLE AND THEN BACK IN [facility] EATING DINNER. DOORS CLOSED OVER SUPPLIES FOR PT SAFETY. SITTER OUTSIDE ROOM. REPOPRT TO VERA PAUL
--- NOTE | 2018-12-02 21:20 | NUR ---
REPORT OF PT FROM HUMBERTO ARORA AND ASSUMING CARE OF PT. PT AGITATED. REQUEST PRN FROM DR. HARDING
[2018-12-02] MEDS ORDERED: LORazepam 1MG TABLET PO ONE (21:30)
[2018-12-02] MEDS ORDERED: LORazepam 1MG TABLET ONE (21:31)
--- NOTE | 2018-12-02 21:33 | NUR ---
PT MEDICATED PER MAR FOR AGITATION
[2018-12-02 21:40] LABS: AMPHETAMINE SCREEN, URINE Negative (Negative); BARBITURATE SCREEN, URINE Positive (Negative); BENZODIAZEPINE SCREEN, URINE Negative (Negative); CANNABINOID SCREEN, URINE Negative (Negative); COCAINE SCREEN, URINE Negative (Negative); METHADONE SCREEN, URINE Negative (Negative); OPIATE SCREEN, URINE Negative (Negative)
--- NOTE | 2018-12-02 21:41 | NUR ---
A FEMALE IDENTIFYING HERSELF PT'S "DUAL POWER OF [employer]", DEMANDING THAT THE PT DOES NOT GET DC FROM THE ED ([phone].) THIS FEMALE STATED THAT THE PT WAS RELEASED FROM THE [facility] "TOO EARLY" AND SHE WARNED STAFFED THAT HE WILL "END UP IN THE ER WITHIN 72 HOURS." THIS FEMALE ALSO STATED THAT SHE DOES NOT WANT THE ED TO "ACCIDENTALLY RELEASE PT FROM ER." THIS FEMALE WAS INFORMED THAT PT WILL NOT BE "ACCIDENTALLY RELEASE" AND ED PHYSICIAN AND STAFF WILL BE USING THEIR CLINICAL JUDGEMENT. THIS FEMALE KEPT REPEATING HERSELF AND REFUSING TO LISTEN TO STAFF AT TIMES. STAFF INFORMED HER THAT THE INFORMATION GIVEN TO BHU STAFF WILL BE PASSED ON TO ED STAFF. SPOKE TO VERA PAUL ABOUT CONVERSATION WITH THIS FEMALE.
[2018-12-02] MEDS ORDERED: POTASSIUM CHLORIDE 20 MEQ TAB.ER.PRT ONE (21:46)
--- NOTE | 2018-12-02 21:54 | NUR ---
PT MEDICATED PER MAR.
--- NOTE | 2018-12-02 22:22 | NUR ---
PT RESTING CALMLY IN [facility] AT THIS TIME; TINGN. SITTER OUTSIDE OF ROOM FOR DIRECT OBSERVATION OF PT.
--- NOTE | 2018-12-03 00:17 | NUR ---
PT VSS AND UPDATED IN EMR. PT HAS SITTER OUTSIDE OF ROOM AT THIS TIME FOR DIRECT OBSERVATION OF PT.
--- NOTE | 2018-12-03 01:28 | NUR ---
PT RESTING IN [facility] AT THIS TIME; LEXIE. PT VERBALIZES UNDERSTANDING OF NEED FOR TELEPSYCH CONSULT. PT DENIES ANY OTHER NEEDS AT THIS TIME.
--- NOTE | 2018-12-03 02:01 | NUR ---
TELSPSYCH CALLED. [id number] BOT PLACED AT BEDSIDE.
--- NOTE | 2018-12-03 02:05 | NUR ---
REPORT OF PT TO DR. DUKE WITH SOC. TELEPSYCH CONSULT WILL BE INITIATED SHORTLY. TELEPSYCH MONITOR IS SETUP IN PT ROOM AT THIS TIME.
--- NOTE | 2018-12-03 02:17 | NUR ---
PT SPEAKING WITH PSYCHIATRIST VIA TELEPSYCH. SITTER OUTSIDE OF ROOM WITH PT FOR DIRECT OBSERVATION.
[2018-12-03] MEDS ORDERED: QUETIAPINE 100MG TABLET ONE (03:35)
--- NOTE | 2018-12-03 03:44 | NUR ---
PT MEDICATED PER MAR. PT HAS SITTER OUTSIDE OF ROOM FOR DIRECT OBSERVATION.
[2018-12-03] MEDS ORDERED: ONDANSETRON 2MG/ML, 2ML IVPush PRN (04:00)
[2018-12-03] MEDS ORDERED: FOLIC ACID 5 MG/ML IM ONE (04:00)
[2018-12-03] MEDS ORDERED: LORazepam 2 MG/ML, 1ML IV PRN ×4 (04:00)
--- NOTE | 2018-12-03 04:03 | NUR ---
PT RESTING COMFORTABLY IN [facility] AT THIS TIME; LEXIE. SITTER OUTSIDE OF ROOM FOR DIRECT OBSERVATION OF PT.
[2018-12-03] MEDS ORDERED: LORazepam 2 MG/ML, 1ML ONE (04:41)
--- NOTE | 2018-12-03 04:58 | NUR ---
WA PROTOCOL INITIATED. PT ASSESSED AND SCORED. PT MEDICATED PER MAR PER PROTOCOL. SITTER OUTSIDE OF PT ROOM AT THIS TIME.
[2018-12-03] MEDS: LORazepam 0.5MG TABLET PO SCH ×4 (06:00→20:04)
[2018-12-03 06:48] VITALS: BP 167/88
[2018-12-03] MEDS: LORazepam 2 MG/ML, 1ML IV PRN ×3 (08:47→22:08)
[2018-12-03] MEDS ORDERED: POTASSIUM CHLORIDE 20 MEQ TAB.ER.PRT PO ONE (09:30)
[2018-12-03] MEDS: SODIUM CHLORIDE 0.9% 1,000 ML IV SCH ×2 (09:30→17:30)
[2018-12-03] MEDS: CARBIDOPA/LEVODOPA 25 MG/100 MG TABLET PO SCH ×2 (10:16→20:03)
[2018-12-03] MEDS: FOLIC ACID 1 MG TABLET PO SCH (10:16)
[2018-12-03] MEDS: TAMSULOSIN 0.4 MG CAP.ER.24H PO SCH (10:16)
[2018-12-03] MEDS: DONEPEZIL 10 MG TABLET PO SCH (10:16)
[2018-12-03] MEDS: MULTIVITAMINS/MINERALS TABLET PO SCH (10:17)
[2018-12-03] MEDS: ALLOPURINOL 300 MG TABLET PO SCH (10:17)
[2018-12-03] MEDS: AMLODIPINE 5 MG TABLET PO SCH (10:17)
[2018-12-03 14:52] VITALS: BP 130/68
[2018-12-03 19:15] VITALS: BP 163/96
[2018-12-03] MEDS: SELEGILINE 5 MG CAPSULE PO SCH (20:03)
[2018-12-03] MEDS: LITHIUM CARBONATE 300 MG TABLET.ER PO SCH (20:03)
[2018-12-03] MEDS: QUETIAPINE 200 MG TABLET PO SCH (20:04)
[2018-12-03] MEDS: PRIMIDONE 250 MG TABLET PO SCH (20:04)
[2018-12-03] MEDS: hydrOXyzine 50MG TABLET PO SCH (20:05)
[2018-12-03] MEDS ORDERED: QUETIAPINE 100MG TABLET PO ONE (21:00)
[2018-12-04 01:23] VITALS: BP 158/91
[2018-12-04] MEDS: LORazepam 0.5MG TABLET PO SCH ×4 (05:55→20:31)
[2018-12-04 06:28] LABS: BASOPHILS # (AUTO) 0.04 x10^3/uL (0-0.1); BASOPHILS % (AUTO) 1 % (0-1); EOSINOPHILS # (AUTO) 0.29 x10^3/uL (0-0.4); EOSINOPHILS % (AUTO) 5 % (1-7); LYMPHOCYTES # (AUTO) 1.59 x10^3/uL (1-3.4); LYMPHOCYTES % (AUTO) 27 % (22-44); MD NO; MEAN CORPUSCULAR HEMOGLOBIN 28.3 pg (27.5-34.5); MEAN CORPUSCULAR HGB CONC 32.5 g/dL (33.2-36.2); MEAN CORPUSCULAR VOLUME 86.8 fL (81-97); MEAN PLATELET VOLUME 7.7 fL (7.4-10.4); MONOCYTES # (AUTO) 0.53 x10^3/uL (0.2-0.8); MONOCYTES % (AUTO) 9 % (2-9); NEUTROPHILS # (AUTO) 3.34 x10^3/uL (1.8-6.8); NEUTROPHILS % (AUTO) 58 % (42-75); PLATELET COUNT 293 x10^3/uL (130-400); RED BLOOD COUNT 4.36 x10^6/uL (4.38-5.82); RED CELL DISTRIBUTION WIDTH 15.5 % (9.4-14.8)
[2018-12-04 06:41] LABS: CALCIUM 8.4 mg/dL (8.5-10.1); CHLORIDE 111 mmol/L (98-107)
[2018-12-04 06:44] LABS: ANION GAP 8 mmol/L (5-15); CREATININE 0.88 mg/dL (0.7-1.3)
[2018-12-04 07:31] VITALS: BP 143/80
[2018-12-04] MEDS: ALLOPURINOL 300 MG TABLET PO SCH (10:50)
[2018-12-04] MEDS: CARBIDOPA/LEVODOPA 25 MG/100 MG TABLET PO SCH ×2 (10:50→20:31)
[2018-12-04] MEDS: MULTIVITAMINS/MINERALS TABLET PO SCH (10:50)
[2018-12-04] MEDS: THIAMINE 100 MG in DEXTROSE 5% 50 ML IVPB SCH (10:50)
[2018-12-04] MEDS: DONEPEZIL 10 MG TABLET PO SCH (10:50)
[2018-12-04] MEDS: TAMSULOSIN 0.4 MG CAP.ER.24H PO SCH (10:51)
[2018-12-04] MEDS: AMLODIPINE 5 MG TABLET PO SCH (10:51)
[2018-12-04] MEDS: FOLIC ACID 1 MG TABLET PO SCH (10:51)
[2018-12-04] MEDS: LORazepam 2 MG/ML, 1ML IV PRN (12:46)
[2018-12-04 16:22] VITALS: BP 157/87
[2018-12-04 18:37] VITALS: BP 157/89
[2018-12-04] MEDS: LITHIUM CARBONATE 300 MG TABLET.ER PO SCH (20:31)
[2018-12-04] MEDS: QUETIAPINE 200 MG TABLET PO SCH (20:31)
[2018-12-04] MEDS: hydrOXyzine 50MG TABLET PO SCH (20:31)
[2018-12-04] MEDS: SELEGILINE 5 MG CAPSULE PO SCH (20:31)
[2018-12-04] MEDS: PRIMIDONE 250 MG TABLET PO SCH (20:31)
[2018-12-05 00:51] VITALS: BP 155/89
[2018-12-05] MEDS: LORazepam 0.5MG TABLET PO SCH ×4 (06:03→21:30)
[2018-12-05 06:51] VITALS: BP 134/76
[2018-12-05] MEDS: CARBIDOPA/LEVODOPA 25 MG/100 MG TABLET PO SCH ×2 (10:25→21:30)
[2018-12-05] MEDS: DONEPEZIL 10 MG TABLET PO SCH (10:25)
[2018-12-05] MEDS: ALLOPURINOL 300 MG TABLET PO SCH (10:25)
[2018-12-05] MEDS: FOLIC ACID 1 MG TABLET PO SCH (10:25)
[2018-12-05] MEDS: MULTIVITAMINS/MINERALS TABLET PO SCH (10:25)
[2018-12-05] MEDS: THIAMINE 100 MG in DEXTROSE 5% 50 ML IVPB SCH (10:25)
[2018-12-05] MEDS: TAMSULOSIN 0.4 MG CAP.ER.24H PO SCH (10:26)
[2018-12-05] MEDS: AMLODIPINE 5 MG TABLET PO SCH (10:26)
[2018-12-05 14:13] VITALS: BP 151/72
[2018-12-05 20:08] VITALS: BP 160/91
[2018-12-05] MEDS: QUETIAPINE 200 MG TABLET PO SCH (21:30)
[2018-12-05] MEDS: LITHIUM CARBONATE 300 MG TABLET.ER PO SCH (21:30)
[2018-12-05] MEDS: PRIMIDONE 250 MG TABLET PO SCH (21:31)
[2018-12-05] MEDS: hydrOXyzine 50MG TABLET PO SCH (21:31)
[2018-12-05] MEDS: SELEGILINE 5 MG CAPSULE PO SCH (21:31)
[2018-12-06 01:44] LABS: ANION GAP 8 mmol/L (5-15); CALCIUM 8.4 mg/dL (8.5-10.1); CHLORIDE 107 mmol/L (98-107); CREATININE 0.94 mg/dL (0.7-1.3)
[2018-12-06 02:29] VITALS: BP 149/86
[2018-12-06 08:25] VITALS: BP 147/75
[2018-12-06] MEDS: TAMSULOSIN 0.4 MG CAP.ER.24H PO SCH (09:07)
[2018-12-06] MEDS: FOLIC ACID 1 MG TABLET PO SCH (09:07)
[2018-12-06] MEDS: DONEPEZIL 10 MG TABLET PO SCH (09:07)
[2018-12-06] MEDS: LORazepam 0.5MG TABLET PO SCH (09:07)
[2018-12-06] MEDS: THIAMINE 100 MG in DEXTROSE 5% 50 ML IVPB SCH (09:07)
[2018-12-06] MEDS: AMLODIPINE 5 MG TABLET PO SCH (09:07)
[2018-12-06] MEDS: CARBIDOPA/LEVODOPA 25 MG/100 MG TABLET PO SCH (09:07)
[2018-12-06] MEDS: ALLOPURINOL 300 MG TABLET PO SCH (09:08)
[2018-12-06] MEDS: MULTIVITAMINS/MINERALS TABLET PO SCH (09:08)
== END 2018-12-06 12:33 | DRG 897 ==
LOC: ED 21:17 → EDIP 12-03 02:52 → 4EST 12-03 06:27
PROVIDERS: ADMIT Internal Medicine; ATTEND Internal Medicine
DX: F10.239 Alcohol dependence with withdrawal, unspecified (principal); R45.851 Suicidal ideations; F10.229 Alcohol dependence with intoxication, unspecified; F02.80 Dementia in other diseases classified elsewhere, unspecified severity, without behavioral disturbance, psychotic disturbance, mood disturbance, and anxiety; F31.9 Bipolar disorder, unspecified; F41.1 Generalized anxiety disorder; F90.9 Attention-deficit hyperactivity disorder, unspecified type; G20 Parkinson's disease; G25.81 Restless legs syndrome; G40.909 Epilepsy, unspecified, not intractable, without status epilepticus; I10 Essential (primary) hypertension; M10.9 Gout, unspecified; N40.0 Benign prostatic hyperplasia without lower urinary tract symptoms; Z63.8 Other specified problems related to primary support group; Z72.0 Tobacco use; Z79.899 Other long term (current) drug therapy; Z82.5 Family history of asthma and other chronic lower respiratory diseases; Z88.6 Allergy status to analgesic agent; Z88.8 Allergy status to other drugs, medicaments and biological substances
CPT/HCPCS: 36415; 80048; 80053; 80178; 80307; 83735; 84100; 85025; 96372; 96374; G0378; J3411; J2060; J7030

== ENCOUNTER 2018-12-03 04:00 | Inpatient (IN) | payer MEDICARE ==
[~2018-12-03] VITALS: Ht 188 cm; Wt 94.4 kg
[2018-12-05] MEDS ORDERED: DOCUSATE 100 MG CAPSULE PO PRN (18:00)
[2018-12-05] MEDS ORDERED: POLYETHYLENE GLYCOL 17 GM PACKET PO PRN (18:00)
[2018-12-05] MEDS ORDERED: BISACODYL 10 MG SUPP PR PRN (18:00)
[2018-12-05] MEDS ORDERED: ONDANSETRON ODT 4 MG PO PRN (18:00)
[2018-12-05] MEDS ORDERED: TRAZODONE 50MG TABLET PO PRN (18:30)
[2018-12-05] MEDS ORDERED: PRIMIDONE 50 MG TABLET PO SCH (21:00)
[2018-12-05] MEDS ORDERED: LITHIUM CARBONATE 300 MG CAPSULE PO SCH (21:00)
[2018-12-05] MEDS ORDERED: ACAMPROSATE 333 MG TABLET.DR PO SCH (21:00)
[2018-12-05] MEDS ORDERED: CARBIDOPA/LEVODOPA 25 MG/100 MG TABLET PO SCH (21:00)
[2018-12-05] MEDS ORDERED: QUETIAPINE 200 MG TABLET PO SCH (21:00)
[2018-12-05] MEDS ORDERED: hydrOXyzine 50MG TABLET PO SCH (21:00)
[2018-12-05] MEDS ORDERED: SELEGILINE 5 MG CAPSULE PO SCH (21:00)
[2018-12-06] MEDS ORDERED: DONEPEZIL 10 MG TABLET PO SCH (09:00)
[2018-12-06] MEDS ORDERED: FOLIC ACID 1 MG TABLET PO SCH (09:00)
[2018-12-06] MEDS ORDERED: THIAMINE 100MG TABLET PO SCH (09:00)
[2018-12-06 12:38] VITALS: BP 151/97
[2018-12-06 13:06] VITALS: BP 151/97
[2018-12-06] MEDS: ACAMPROSATE 333 MG TABLET.DR PO SCH ×2 (16:26→20:11)
[2018-12-06 19:47] VITALS: BP 141/87
[2018-12-06] MEDS: hydrOXyzine 50MG TABLET PO SCH (20:08)
[2018-12-06] MEDS: ACETAMINOPHEN 325 MG TABLET PO PRN (20:11)
[2018-12-06] MEDS: CARBIDOPA/LEVODOPA 25 MG/100 MG TABLET PO SCH (20:11)
[2018-12-06] MEDS: QUETIAPINE 200 MG TABLET PO SCH (20:11)
[2018-12-06] MEDS ORDERED: SELEGILINE 5 MG CAPSULE PO SCH (21:00)
[2018-12-06] MEDS ORDERED: LITHIUM CARBONATE 300 MG CAPSULE PO SCH (21:00)
[2018-12-06] MEDS ORDERED: PRIMIDONE 50 MG TABLET PO SCH (21:00)
[2018-12-07] MEDS: ACETAMINOPHEN 325 MG TABLET PO PRN ×2 (04:01→08:58)
[2018-12-07 07:25] VITALS: BP 143/83
[2018-12-07] MEDS: ACAMPROSATE 333 MG TABLET.DR PO SCH ×4 (08:57→20:28)
[2018-12-07] MEDS: CARBIDOPA/LEVODOPA 25 MG/100 MG TABLET PO SCH ×2 (08:58→20:28)
[2018-12-07] MEDS ORDERED: FOLIC ACID 1 MG TABLET PO SCH (09:00)
[2018-12-07] MEDS ORDERED: DONEPEZIL 10 MG TABLET PO SCH (09:00)
[2018-12-07] MEDS: DONEPEZIL 10 MG TABLET PO SCH (09:00)
[2018-12-07] MEDS: THIAMINE 100MG TABLET PO SCH ×2 (09:00→10:22)
[2018-12-07] MEDS: FOLIC ACID 1 MG TABLET PO SCH (09:00)
[2018-12-07] MEDS ORDERED: THIAMINE 100MG TABLET PO SCH (09:00)
[2018-12-07] MEDS ORDERED: hydrALAzine 20 MG/ML, 1ML IVPush PRN (09:30)
[2018-12-07] MEDS: TAMSULOSIN 0.4 MG CAP.ER.24H PO SCH (10:22)
[2018-12-07] MEDS: ALLOPURINOL 300 MG TABLET PO SCH (10:22)
[2018-12-07] MEDS: AMLODIPINE 5 MG TABLET PO SCH (10:22)
[2018-12-07] MEDS: LORazepam 0.5MG TABLET PO SCH ×3 (11:13→20:27)
[2018-12-07 19:36] VITALS: BP 134/73
[2018-12-07] MEDS: hydrOXyzine 50MG TABLET PO SCH (20:27)
[2018-12-07] MEDS: QUETIAPINE 200 MG TABLET PO SCH ×2 (20:27→20:30)
[2018-12-07] MEDS: MED PO SCH (20:27)
[2018-12-07] MEDS: TRAZODONE 50MG TABLET PO SCH (20:28)
[2018-12-07] MEDS: SELEGILINE 5 MG CAPSULE PO SCH (20:28)
[2018-12-07] MEDS: PRIMIDONE 250 MG TABLET PO SCH (20:28)
[2018-12-07] MEDS ORDERED: PRIMIDONE 250 MG TABLET PO SCH (21:00)
[2018-12-08] MEDS: LORazepam 0.5MG TABLET PO SCH ×4 (05:00→20:18)
[2018-12-08] MEDS: ACETAMINOPHEN 325 MG TABLET PO PRN ×3 (05:00→22:11)
[2018-12-08 07:20] VITALS: BP 125/75
[2018-12-08] MEDS: TAMSULOSIN 0.4 MG CAP.ER.24H PO SCH (08:39)
[2018-12-08] MEDS: AMLODIPINE 5 MG TABLET PO SCH (08:39)
[2018-12-08] MEDS: FOLIC ACID 1 MG TABLET PO SCH (08:39)
[2018-12-08] MEDS: ACAMPROSATE 333 MG TABLET.DR PO SCH ×3 (08:39→20:17)
[2018-12-08] MEDS: DONEPEZIL 10 MG TABLET PO SCH (08:39)
[2018-12-08] MEDS: CARBIDOPA/LEVODOPA 25 MG/100 MG TABLET PO SCH ×2 (08:40→20:18)
[2018-12-08] MEDS: THIAMINE 100MG TABLET PO SCH (08:40)
[2018-12-08] MEDS: ALLOPURINOL 300 MG TABLET PO SCH (08:40)
[2018-12-08 19:55] VITALS: BP 169/92
[2018-12-08] MEDS: MED PO SCH (20:18)
[2018-12-08] MEDS: hydrOXyzine 50MG TABLET PO SCH (20:18)
[2018-12-08] MEDS: TRAZODONE 50MG TABLET PO SCH (20:18)
[2018-12-08] MEDS: SELEGILINE 5 MG CAPSULE PO SCH (20:18)
[2018-12-08] MEDS: QUETIAPINE 200 MG TABLET PO SCH ×2 (20:18)
[2018-12-08] MEDS: PRIMIDONE 250 MG TABLET PO SCH (20:18)
[2018-12-09] MEDS: LORazepam 0.5MG TABLET PO SCH ×4 (05:39→20:23)
[2018-12-09 07:05] VITALS: BP 121/73
[2018-12-09] MEDS: ACAMPROSATE 333 MG TABLET.DR PO SCH ×3 (08:40→20:23)
[2018-12-09] MEDS: CARBIDOPA/LEVODOPA 25 MG/100 MG TABLET PO SCH ×2 (08:41→20:23)
[2018-12-09] MEDS: TAMSULOSIN 0.4 MG CAP.ER.24H PO SCH (08:41)
[2018-12-09] MEDS: AMLODIPINE 5 MG TABLET PO SCH (08:41)
[2018-12-09] MEDS: FOLIC ACID 1 MG TABLET PO SCH (08:41)
[2018-12-09] MEDS: THIAMINE 100MG TABLET PO SCH (08:41)
[2018-12-09] MEDS: ALLOPURINOL 300 MG TABLET PO SCH (08:41)
[2018-12-09] MEDS: DONEPEZIL 10 MG TABLET PO SCH (08:41)
[2018-12-09] MEDS: ACETAMINOPHEN 325 MG TABLET PO PRN ×2 (12:32→21:40)
[2018-12-09 19:40] VITALS: BP 155/95
[2018-12-09] MEDS: SELEGILINE 5 MG CAPSULE PO SCH (20:23)
[2018-12-09] MEDS: TRAZODONE 50MG TABLET PO SCH (20:23)
[2018-12-09] MEDS: PRIMIDONE 250 MG TABLET PO SCH (20:23)
[2018-12-09] MEDS: hydrOXyzine 50MG TABLET PO SCH (20:23)
[2018-12-09] MEDS: MED PO SCH (20:23)
[2018-12-09] MEDS: QUETIAPINE 200 MG TABLET PO SCH ×2 (20:24→20:26)
[2018-12-10] MEDS: LORazepam 0.5MG TABLET PO SCH ×4 (05:30→20:32)
[2018-12-10 07:09] VITALS: BP 134/87
[2018-12-10] MEDS: ALLOPURINOL 300 MG TABLET PO SCH (08:54)
[2018-12-10] MEDS: TAMSULOSIN 0.4 MG CAP.ER.24H PO SCH (08:55)
[2018-12-10] MEDS: ACETAMINOPHEN 325 MG TABLET PO PRN (08:55)
[2018-12-10] MEDS: ACAMPROSATE 333 MG TABLET.DR PO SCH ×3 (08:55→20:33)
[2018-12-10] MEDS: DONEPEZIL 10 MG TABLET PO SCH (08:55)
[2018-12-10] MEDS: FOLIC ACID 1 MG TABLET PO SCH (08:55)
[2018-12-10] MEDS: AMLODIPINE 5 MG TABLET PO SCH (08:55)
[2018-12-10] MEDS: THIAMINE 100MG TABLET PO SCH (08:56)
[2018-12-10] MEDS: CARBIDOPA/LEVODOPA 25 MG/100 MG TABLET PO SCH ×2 (08:56→20:32)
[2018-12-10] MEDS: MED PO SCH (20:32)
[2018-12-10] MEDS: hydrOXyzine 50MG TABLET PO SCH (20:32)
[2018-12-10] MEDS: QUETIAPINE 200 MG TABLET PO SCH ×2 (20:32)
[2018-12-10] MEDS: TRAZODONE 50MG TABLET PO SCH (20:32)
[2018-12-10] MEDS: PRIMIDONE 250 MG TABLET PO SCH (20:33)
[2018-12-10] MEDS: SELEGILINE 5 MG CAPSULE PO SCH (20:33)
[2018-12-11] MEDS: ACETAMINOPHEN 325 MG TABLET PO PRN ×2 (03:08→20:33)
[2018-12-11] MEDS: LORazepam 0.5MG TABLET PO SCH ×4 (05:24→20:28)
[2018-12-11 07:09] VITALS: BP 119/71
[2018-12-11] MEDS: DONEPEZIL 10 MG TABLET PO SCH (08:50)
[2018-12-11] MEDS: AMLODIPINE 5 MG TABLET PO SCH (08:50)
[2018-12-11] MEDS: ALLOPURINOL 300 MG TABLET PO SCH (08:50)
[2018-12-11] MEDS: TAMSULOSIN 0.4 MG CAP.ER.24H PO SCH (08:51)
[2018-12-11] MEDS: ACAMPROSATE 333 MG TABLET.DR PO SCH ×3 (08:51→20:29)
[2018-12-11] MEDS: CARBIDOPA/LEVODOPA 25 MG/100 MG TABLET PO SCH ×2 (08:51→20:29)
[2018-12-11] MEDS: FOLIC ACID 1 MG TABLET PO SCH (08:51)
[2018-12-11] MEDS: THIAMINE 100MG TABLET PO SCH (08:51)
[2018-12-11 19:54] VITALS: BP 157/88
[2018-12-11] MEDS: hydrOXyzine 50MG TABLET PO SCH (20:28)
[2018-12-11] MEDS: PRIMIDONE 250 MG TABLET PO SCH (20:28)
[2018-12-11] MEDS: QUETIAPINE 200 MG TABLET PO SCH ×2 (20:28)
[2018-12-11] MEDS: TRAZODONE 50MG TABLET PO SCH (20:28)
[2018-12-11] MEDS: SELEGILINE 5 MG CAPSULE PO SCH (20:29)
[2018-12-11] MEDS: MED PO SCH (20:29)
[2018-12-12] MEDS: ACETAMINOPHEN 325 MG TABLET PO PRN ×2 (04:02→09:41)
[2018-12-12] MEDS: LORazepam 0.5MG TABLET PO SCH ×4 (05:16→20:44)
[2018-12-12 07:09] VITALS: BP 112/72
[2018-12-12] MEDS: CARBIDOPA/LEVODOPA 25 MG/100 MG TABLET PO SCH ×2 (09:41→20:44)
[2018-12-12] MEDS: ACAMPROSATE 333 MG TABLET.DR PO SCH ×3 (09:41→20:44)
[2018-12-12] MEDS: ALLOPURINOL 300 MG TABLET PO SCH (09:42)
[2018-12-12] MEDS: THIAMINE 100MG TABLET PO SCH (09:42)
[2018-12-12] MEDS: AMLODIPINE 5 MG TABLET PO SCH (09:42)
[2018-12-12] MEDS: TAMSULOSIN 0.4 MG CAP.ER.24H PO SCH (09:42)
[2018-12-12] MEDS: DONEPEZIL 10 MG TABLET PO SCH (09:42)
[2018-12-12] MEDS: FOLIC ACID 1 MG TABLET PO SCH (09:42)
[2018-12-12 19:43] VITALS: BP 144/83
[2018-12-12] MEDS: MED PO SCH (20:43)
[2018-12-12] MEDS: PRIMIDONE 250 MG TABLET PO SCH (20:43)
[2018-12-12] MEDS: TRAZODONE 50MG TABLET PO SCH (20:43)
[2018-12-12] MEDS: SELEGILINE 5 MG CAPSULE PO SCH (20:43)
[2018-12-12] MEDS: QUETIAPINE 200 MG TABLET PO SCH ×2 (20:44→21:00)
[2018-12-12] MEDS: hydrOXyzine 50MG TABLET PO SCH (20:44)
[2018-12-13] MEDS: LORazepam 0.5MG TABLET PO SCH ×4 (06:08→20:42)
[2018-12-13 07:15] VITALS: BP 137/90
[2018-12-13] MEDS: AMLODIPINE 5 MG TABLET PO SCH (08:51)
[2018-12-13] MEDS: FOLIC ACID 1 MG TABLET PO SCH (08:51)
[2018-12-13] MEDS: CARBIDOPA/LEVODOPA 25 MG/100 MG TABLET PO SCH ×2 (08:51→20:43)
[2018-12-13] MEDS: THIAMINE 100MG TABLET PO SCH (08:51)
[2018-12-13] MEDS: TAMSULOSIN 0.4 MG CAP.ER.24H PO SCH (08:52)
[2018-12-13] MEDS: ALLOPURINOL 300 MG TABLET PO SCH (08:52)
[2018-12-13] MEDS: ACAMPROSATE 333 MG TABLET.DR PO SCH ×3 (08:52→20:42)
[2018-12-13] MEDS: DONEPEZIL 10 MG TABLET PO SCH (08:52)
[2018-12-13] MEDS: ACETAMINOPHEN 325 MG TABLET PO PRN (09:07)
[2018-12-13 19:35] VITALS: BP 132/80
[2018-12-13] MEDS: QUETIAPINE 200 MG TABLET PO SCH ×2 (20:42→20:49)
[2018-12-13] MEDS: SELEGILINE 5 MG CAPSULE PO SCH (20:42)
[2018-12-13] MEDS: hydrOXyzine 50MG TABLET PO SCH (20:43)
[2018-12-13] MEDS: TRAZODONE 50MG TABLET PO SCH (20:43)
[2018-12-13] MEDS: MED PO SCH (20:43)
[2018-12-13] MEDS: PRIMIDONE 250 MG TABLET PO SCH (20:43)
[2018-12-14] MEDS: LORazepam 0.5MG TABLET PO SCH ×4 (05:24→20:57)
[2018-12-14 07:03] VITALS: BP 112/65
[2018-12-14] MEDS: ACAMPROSATE 333 MG TABLET.DR PO SCH ×3 (08:52→20:56)
[2018-12-14] MEDS: FOLIC ACID 1 MG TABLET PO SCH (08:52)
[2018-12-14] MEDS: THIAMINE 100MG TABLET PO SCH (08:52)
[2018-12-14] MEDS: TAMSULOSIN 0.4 MG CAP.ER.24H PO SCH (08:52)
[2018-12-14] MEDS: ACETAMINOPHEN 325 MG TABLET PO PRN (08:53)
[2018-12-14] MEDS: DONEPEZIL 10 MG TABLET PO SCH (08:53)
[2018-12-14] MEDS: AMLODIPINE 5 MG TABLET PO SCH (08:53)
[2018-12-14] MEDS: ALLOPURINOL 300 MG TABLET PO SCH (08:53)
[2018-12-14] MEDS: CARBIDOPA/LEVODOPA 25 MG/100 MG TABLET PO SCH ×2 (08:53→20:57)
[2018-12-14 19:48] VITALS: BP 148/82
[2018-12-14] MEDS: MED PO SCH (20:56)
[2018-12-14] MEDS: TRAZODONE 50MG TABLET PO SCH (20:56)
[2018-12-14] MEDS: SELEGILINE 5 MG CAPSULE PO SCH (20:57)
[2018-12-14] MEDS: QUETIAPINE 200 MG TABLET PO SCH ×2 (20:57→20:59)
[2018-12-14] MEDS: PRIMIDONE 250 MG TABLET PO SCH (21:00)
[2018-12-14] MEDS: hydrOXyzine 50MG TABLET PO SCH (21:00)
[2018-12-15] MEDS: LORazepam 0.5MG TABLET PO SCH ×4 (05:51→20:07)
[2018-12-15 07:12] VITALS: BP 132/73
[2018-12-15] MEDS: FOLIC ACID 1 MG TABLET PO SCH (08:29)
[2018-12-15] MEDS: ACAMPROSATE 333 MG TABLET.DR PO SCH ×3 (08:29→20:07)
[2018-12-15] MEDS: ALLOPURINOL 300 MG TABLET PO SCH (08:29)
[2018-12-15] MEDS: CARBIDOPA/LEVODOPA 25 MG/100 MG TABLET PO SCH ×2 (08:29→20:07)
[2018-12-15] MEDS: TAMSULOSIN 0.4 MG CAP.ER.24H PO SCH (08:29)
[2018-12-15] MEDS: THIAMINE 100MG TABLET PO SCH (08:29)
[2018-12-15] MEDS: DONEPEZIL 10 MG TABLET PO SCH (08:29)
[2018-12-15] MEDS: AMLODIPINE 5 MG TABLET PO SCH (08:29)
[2018-12-15 19:35] VITALS: BP 153/89
[2018-12-15] MEDS: QUETIAPINE 200 MG TABLET PO SCH ×2 (20:06→20:07)
[2018-12-15] MEDS: hydrOXyzine 50MG TABLET PO SCH (20:07)
[2018-12-15] MEDS: SELEGILINE 5 MG CAPSULE PO SCH (20:07)
[2018-12-15] MEDS: TRAZODONE 50MG TABLET PO SCH (20:07)
[2018-12-15] MEDS: MED PO SCH (20:08)
[2018-12-15] MEDS: PRIMIDONE 250 MG TABLET PO SCH (20:08)
[2018-12-15] MEDS: ACETAMINOPHEN 325 MG TABLET PO PRN (20:17)
[2018-12-16] MEDS: LORazepam 0.5MG TABLET PO SCH ×4 (05:31→19:53)
[2018-12-16 07:08] VITALS: BP 148/83
[2018-12-16] MEDS: ACAMPROSATE 333 MG TABLET.DR PO SCH ×3 (08:20→19:54)
[2018-12-16] MEDS: TAMSULOSIN 0.4 MG CAP.ER.24H PO SCH (08:20)
[2018-12-16] MEDS: THIAMINE 100MG TABLET PO SCH (08:20)
[2018-12-16] MEDS: DONEPEZIL 10 MG TABLET PO SCH (08:20)
[2018-12-16] MEDS: FOLIC ACID 1 MG TABLET PO SCH (08:20)
[2018-12-16] MEDS: ALLOPURINOL 300 MG TABLET PO SCH (08:20)
[2018-12-16] MEDS: CARBIDOPA/LEVODOPA 25 MG/100 MG TABLET PO SCH ×2 (08:21→19:53)
[2018-12-16] MEDS: ACETAMINOPHEN 325 MG TABLET PO PRN ×2 (08:21→19:54)
[2018-12-16] MEDS: AMLODIPINE 5 MG TABLET PO SCH (08:21)
[2018-12-16] MEDS: hydrOXyzine 50MG TABLET PO SCH (19:53)
[2018-12-16] MEDS: MED PO SCH (19:53)
[2018-12-16] MEDS: QUETIAPINE 200 MG TABLET PO SCH ×2 (19:53)
[2018-12-16] MEDS: TRAZODONE 50MG TABLET PO SCH (19:54)
[2018-12-16] MEDS: PRIMIDONE 250 MG TABLET PO SCH (19:54)
[2018-12-16] MEDS: SELEGILINE 5 MG CAPSULE PO SCH (19:55)
[2018-12-16 20:00] VITALS: BP 146/90
[2018-12-17] MEDS: LORazepam 0.5MG TABLET PO SCH ×4 (05:59→20:40)
[2018-12-17 07:05] VITALS: BP 135/80
[2018-12-17] MEDS: AMLODIPINE 5 MG TABLET PO SCH (08:30)
[2018-12-17] MEDS: ACETAMINOPHEN 325 MG TABLET PO PRN (08:30)
[2018-12-17] MEDS: FOLIC ACID 1 MG TABLET PO SCH (08:30)
[2018-12-17] MEDS: CARBIDOPA/LEVODOPA 25 MG/100 MG TABLET PO SCH ×2 (08:30→20:42)
[2018-12-17] MEDS: TAMSULOSIN 0.4 MG CAP.ER.24H PO SCH (08:30)
[2018-12-17] MEDS: ACAMPROSATE 333 MG TABLET.DR PO SCH ×3 (08:30→20:45)
[2018-12-17] MEDS: ALLOPURINOL 300 MG TABLET PO SCH (08:30)
[2018-12-17] MEDS: DONEPEZIL 10 MG TABLET PO SCH (08:30)
[2018-12-17] MEDS: THIAMINE 100MG TABLET PO SCH (08:31)
[2018-12-17 19:43] VITALS: BP 145/91
[2018-12-17] MEDS: PRIMIDONE 250 MG TABLET PO SCH (20:41)
[2018-12-17] MEDS: MED PO SCH (20:42)
[2018-12-17] MEDS: TRAZODONE 50MG TABLET PO SCH (20:43)
[2018-12-17] MEDS: SELEGILINE 5 MG CAPSULE PO SCH (20:43)
[2018-12-17] MEDS: hydrOXyzine 50MG TABLET PO SCH (20:44)
[2018-12-17] MEDS: QUETIAPINE 200 MG TABLET PO SCH ×3 (20:45→20:58)
[2018-12-18] MEDS: ACETAMINOPHEN 325 MG TABLET PO PRN ×3 (04:02→20:42)
[2018-12-18] MEDS: LORazepam 0.5MG TABLET PO SCH ×4 (06:34→20:41)
[2018-12-18 07:44] VITALS: BP 125/70
[2018-12-18] MEDS: AMLODIPINE 5 MG TABLET PO SCH (08:07)
[2018-12-18] MEDS: ACAMPROSATE 333 MG TABLET.DR PO SCH ×3 (08:07→20:41)
[2018-12-18] MEDS: FOLIC ACID 1 MG TABLET PO SCH (08:08)
[2018-12-18] MEDS: THIAMINE 100MG TABLET PO SCH (08:08)
[2018-12-18] MEDS: CARBIDOPA/LEVODOPA 25 MG/100 MG TABLET PO SCH ×2 (08:08→20:41)
[2018-12-18] MEDS: ALLOPURINOL 300 MG TABLET PO SCH (08:08)
[2018-12-18] MEDS: TAMSULOSIN 0.4 MG CAP.ER.24H PO SCH (08:08)
[2018-12-18 19:19] VITALS: BP 153/77
[2018-12-18] MEDS: QUETIAPINE 200 MG TABLET PO SCH (20:41)
[2018-12-18] MEDS: SELEGILINE 5 MG CAPSULE PO SCH (20:41)
[2018-12-18] MEDS: PRIMIDONE 250 MG TABLET PO SCH (20:42)
[2018-12-18] MEDS: TRAZODONE 150MG TABLET PO SCH (20:42)
[2018-12-18] MEDS: hydrOXyzine 50MG TABLET PO SCH (20:42)
[2018-12-18] MEDS: MED PO SCH (20:42)
[2018-12-19] MEDS: LORazepam 0.5MG TABLET PO SCH ×4 (05:46→20:36)
[2018-12-19 07:10] VITALS: BP 126/84
[2018-12-19] MEDS: TAMSULOSIN 0.4 MG CAP.ER.24H PO SCH (08:21)
[2018-12-19] MEDS: ALLOPURINOL 300 MG TABLET PO SCH (08:21)
[2018-12-19] MEDS: ACETAMINOPHEN 325 MG TABLET PO PRN ×2 (08:21→20:36)
[2018-12-19] MEDS: ACAMPROSATE 333 MG TABLET.DR PO SCH ×3 (08:21→20:37)
[2018-12-19] MEDS: AMLODIPINE 5 MG TABLET PO SCH (08:21)
[2018-12-19] MEDS: CARBIDOPA/LEVODOPA 25 MG/100 MG TABLET PO SCH ×2 (08:21→20:36)
[2018-12-19] MEDS: THIAMINE 100MG TABLET PO SCH (08:22)
[2018-12-19] MEDS: FOLIC ACID 1 MG TABLET PO SCH (08:22)
[2018-12-19 19:38] VITALS: BP 133/78
[2018-12-19] MEDS: TRAZODONE 150MG TABLET PO SCH (20:36)
[2018-12-19] MEDS: SELEGILINE 5 MG CAPSULE PO SCH (20:36)
[2018-12-19] MEDS: MED PO SCH (20:37)
[2018-12-19] MEDS: hydrOXyzine 50MG TABLET PO SCH (20:37)
[2018-12-19] MEDS: PRIMIDONE 250 MG TABLET PO SCH (20:37)
[2018-12-19] MEDS: QUETIAPINE 200 MG TABLET PO SCH (20:38)
[2018-12-20] MEDS: LORazepam 0.5MG TABLET PO SCH ×4 (05:59→20:57)
[2018-12-20 07:10] VITALS: BP 117/76
[2018-12-20] MEDS: TAMSULOSIN 0.4 MG CAP.ER.24H PO SCH (08:26)
[2018-12-20] MEDS: ACAMPROSATE 333 MG TABLET.DR PO SCH ×3 (08:27→20:57)
[2018-12-20] MEDS: ACETAMINOPHEN 325 MG TABLET PO PRN ×2 (08:27→20:56)
[2018-12-20] MEDS: AMLODIPINE 5 MG TABLET PO SCH (08:27)
[2018-12-20] MEDS: CARBIDOPA/LEVODOPA 25 MG/100 MG TABLET PO SCH ×2 (08:27→20:58)
[2018-12-20] MEDS: FOLIC ACID 1 MG TABLET PO SCH (08:27)
[2018-12-20] MEDS: ALLOPURINOL 300 MG TABLET PO SCH (08:27)
[2018-12-20] MEDS: THIAMINE 100MG TABLET PO SCH (08:27)
[2018-12-20 19:42] VITALS: BP 132/77
[2018-12-20] MEDS: QUETIAPINE 200 MG TABLET PO SCH (20:56)
[2018-12-20] MEDS: MED PO SCH (20:57)
[2018-12-20] MEDS: hydrOXyzine 50MG TABLET PO SCH (20:57)
[2018-12-20] MEDS: PRIMIDONE 250 MG TABLET PO SCH (20:57)
[2018-12-20] MEDS: TRAZODONE 150MG TABLET PO SCH (20:58)
[2018-12-20] MEDS: SELEGILINE 5 MG CAPSULE PO SCH (21:03)
[2018-12-21] MEDS: LORazepam 0.5MG TABLET PO SCH ×4 (05:40→21:02)
[2018-12-21 07:23] VITALS: BP 127/77
[2018-12-21] MEDS: TAMSULOSIN 0.4 MG CAP.ER.24H PO SCH (08:34)
[2018-12-21] MEDS: THIAMINE 100MG TABLET PO SCH (08:34)
[2018-12-21] MEDS: ALLOPURINOL 300 MG TABLET PO SCH (08:34)
[2018-12-21] MEDS: ACAMPROSATE 333 MG TABLET.DR PO SCH ×3 (08:35→21:01)
[2018-12-21] MEDS: AMLODIPINE 5 MG TABLET PO SCH (08:35)
[2018-12-21] MEDS: FOLIC ACID 1 MG TABLET PO SCH (08:35)
[2018-12-21] MEDS: CARBIDOPA/LEVODOPA 25 MG/100 MG TABLET PO SCH ×2 (08:35→21:02)
[2018-12-21] MEDS: ACETAMINOPHEN 325 MG TABLET PO PRN (08:43)
[2018-12-21 19:30] VITALS: BP 150/86
[2018-12-21] MEDS: MED PO SCH (21:01)
[2018-12-21] MEDS: hydrOXyzine 50MG TABLET PO SCH (21:01)
[2018-12-21] MEDS: PRIMIDONE 250 MG TABLET PO SCH (21:02)
[2018-12-21] MEDS: TRAZODONE 150MG TABLET PO SCH (21:02)
[2018-12-21] MEDS: SELEGILINE 5 MG CAPSULE PO SCH (21:02)
[2018-12-21] MEDS: QUETIAPINE 200 MG TABLET PO SCH (21:02)
[2018-12-22] MEDS: LORazepam 0.5MG TABLET PO SCH ×4 (05:55→21:37)
[2018-12-22] MEDS: ACETAMINOPHEN 325 MG TABLET PO PRN ×2 (05:58→09:27)
[2018-12-22 07:20] VITALS: BP 138/81
[2018-12-22] MEDS: FOLIC ACID 1 MG TABLET PO SCH (09:17)
[2018-12-22] MEDS: CARBIDOPA/LEVODOPA 25 MG/100 MG TABLET PO SCH ×2 (09:17→21:36)
[2018-12-22] MEDS: TAMSULOSIN 0.4 MG CAP.ER.24H PO SCH (09:18)
[2018-12-22] MEDS: AMLODIPINE 5 MG TABLET PO SCH (09:18)
[2018-12-22] MEDS: THIAMINE 100MG TABLET PO SCH (09:18)
[2018-12-22] MEDS: ACAMPROSATE 333 MG TABLET.DR PO SCH ×3 (09:18→21:36)
[2018-12-22] MEDS: ALLOPURINOL 300 MG TABLET PO SCH (09:19)
[2018-12-22 19:19] VITALS: BP 153/89
[2018-12-22] MEDS: hydrOXyzine 50MG TABLET PO SCH (21:36)
[2018-12-22] MEDS: QUETIAPINE 200 MG TABLET PO SCH (21:36)
[2018-12-22] MEDS: PRIMIDONE 250 MG TABLET PO SCH (21:37)
[2018-12-22] MEDS: MED PO SCH (21:37)
[2018-12-22] MEDS: SELEGILINE 5 MG CAPSULE PO SCH (21:37)
[2018-12-22] MEDS: TRAZODONE 150MG TABLET PO SCH (21:37)
[2018-12-23] MEDS: ACETAMINOPHEN 325 MG TABLET PO PRN ×2 (03:19→09:01)
[2018-12-23] MEDS: LORazepam 0.5MG TABLET PO SCH ×4 (06:06→21:09)
[2018-12-23 07:15] VITALS: BP 111/68
[2018-12-23] MEDS: THIAMINE 100MG TABLET PO SCH (08:10)
[2018-12-23] MEDS: ACAMPROSATE 333 MG TABLET.DR PO SCH ×3 (08:10→21:08)
[2018-12-23] MEDS: FOLIC ACID 1 MG TABLET PO SCH (08:11)
[2018-12-23] MEDS: TAMSULOSIN 0.4 MG CAP.ER.24H PO SCH (08:11)
[2018-12-23] MEDS: AMLODIPINE 5 MG TABLET PO SCH (08:11)
[2018-12-23] MEDS: ALLOPURINOL 300 MG TABLET PO SCH (08:11)
[2018-12-23] MEDS: CARBIDOPA/LEVODOPA 25 MG/100 MG TABLET PO SCH ×2 (08:11→21:09)
[2018-12-23 19:33] VITALS: BP 163/91
[2018-12-23] MEDS: SELEGILINE 5 MG CAPSULE PO SCH (21:08)
[2018-12-23] MEDS: QUETIAPINE 200 MG TABLET PO SCH (21:08)
[2018-12-23] MEDS: PRIMIDONE 250 MG TABLET PO SCH (21:09)
[2018-12-23] MEDS: MED PO SCH (21:09)
[2018-12-23] MEDS: hydrOXyzine 50MG TABLET PO SCH (21:09)
[2018-12-23] MEDS: TRAZODONE 150MG TABLET PO SCH (21:09)
[2018-12-24] MEDS: LORazepam 0.5MG TABLET PO SCH ×4 (05:54→20:59)
[2018-12-24 07:30] VITALS: BP 116/71
[2018-12-24] MEDS: AMLODIPINE 5 MG TABLET PO SCH (08:22)
[2018-12-24] MEDS: TAMSULOSIN 0.4 MG CAP.ER.24H PO SCH (08:22)
[2018-12-24] MEDS: CARBIDOPA/LEVODOPA 25 MG/100 MG TABLET PO SCH ×2 (08:22→21:01)
[2018-12-24] MEDS: THIAMINE 100MG TABLET PO SCH (08:22)
[2018-12-24] MEDS: FOLIC ACID 1 MG TABLET PO SCH (08:22)
[2018-12-24] MEDS: ACAMPROSATE 333 MG TABLET.DR PO SCH ×3 (08:22→20:59)
[2018-12-24] MEDS: ALLOPURINOL 300 MG TABLET PO SCH (08:22)
[2018-12-24] MEDS: ACETAMINOPHEN 325 MG TABLET PO PRN ×2 (14:17→21:06)
[2018-12-24 19:41] VITALS: BP 149/89
[2018-12-24] MEDS: TRAZODONE 150MG TABLET PO SCH (20:59)
[2018-12-24] MEDS: hydrOXyzine 50MG TABLET PO SCH (20:59)
[2018-12-24] MEDS: PRIMIDONE 250 MG TABLET PO SCH (21:00)
[2018-12-24] MEDS: MED PO SCH (21:00)
[2018-12-24] MEDS: QUETIAPINE 200 MG TABLET PO SCH (21:00)
[2018-12-24] MEDS: SELEGILINE 5 MG CAPSULE PO SCH (21:00)
[2018-12-25] MEDS: LORazepam 0.5MG TABLET PO SCH ×4 (05:32→20:32)
[2018-12-25] MEDS: ACETAMINOPHEN 325 MG TABLET PO PRN ×3 (05:32→20:33)
[2018-12-25] MEDS: ACAMPROSATE 333 MG TABLET.DR PO SCH ×3 (08:42→20:32)
[2018-12-25] MEDS: CARBIDOPA/LEVODOPA 25 MG/100 MG TABLET PO SCH ×2 (08:42→20:32)
[2018-12-25] MEDS: TAMSULOSIN 0.4 MG CAP.ER.24H PO SCH (08:42)
[2018-12-25] MEDS: ALLOPURINOL 300 MG TABLET PO SCH (08:42)
[2018-12-25] MEDS: AMLODIPINE 5 MG TABLET PO SCH (08:43)
[2018-12-25] MEDS: FOLIC ACID 1 MG TABLET PO SCH (08:43)
[2018-12-25] MEDS: THIAMINE 100MG TABLET PO SCH (08:43)
[2018-12-25 09:51] VITALS: BP 125/79
[2018-12-25 18:58] VITALS: BP 136/88
[2018-12-25] MEDS: QUETIAPINE 200 MG TABLET PO SCH (20:31)
[2018-12-25] MEDS: MED PO SCH (20:32)
[2018-12-25] MEDS: hydrOXyzine 50MG TABLET PO SCH (20:32)
[2018-12-25] MEDS: TRAZODONE 150MG TABLET PO SCH (20:32)
[2018-12-25] MEDS: SELEGILINE 5 MG CAPSULE PO SCH (20:32)
[2018-12-25] MEDS: PRIMIDONE 250 MG TABLET PO SCH (20:33)
[2018-12-26] MEDS: ACETAMINOPHEN 325 MG TABLET PO PRN ×3 (04:17→20:07)
[2018-12-26] MEDS: LORazepam 0.5MG TABLET PO SCH ×4 (05:43→20:08)
[2018-12-26 07:43] VITALS: BP 143/92
[2018-12-26] MEDS: FOLIC ACID 1 MG TABLET PO SCH (08:32)
[2018-12-26] MEDS: TAMSULOSIN 0.4 MG CAP.ER.24H PO SCH (08:32)
[2018-12-26] MEDS: THIAMINE 100MG TABLET PO SCH (08:32)
[2018-12-26] MEDS: ACAMPROSATE 333 MG TABLET.DR PO SCH ×3 (08:33→20:07)
[2018-12-26] MEDS: ALLOPURINOL 300 MG TABLET PO SCH (08:33)
[2018-12-26] MEDS: AMLODIPINE 5 MG TABLET PO SCH (08:33)
[2018-12-26] MEDS: CARBIDOPA/LEVODOPA 25 MG/100 MG TABLET PO SCH ×2 (08:33→20:07)
[2018-12-26] MEDS ORDERED: LITH300C PO (16:27)
[2018-12-26] MEDS ORDERED: QUET200T PO (16:27)
[2018-12-26] MEDS ORDERED: ACAM333T7 PO (16:27)
[2018-12-26] MEDS ORDERED: PRIM250T34 PO (16:27)
[2018-12-26] MEDS ORDERED: HYDR50TA13 PO (16:27)
[2018-12-26] MEDS ORDERED: CARB1TAB22 PO (16:27)
[2018-12-26] MEDS ORDERED: Tamsulosin PO (16:27)
[2018-12-26] MEDS ORDERED: TRAZ150T62 PO (16:27)
[2018-12-26] MEDS ORDERED: SELE5CAP PO (16:27)
[2018-12-26] MEDS ORDERED: ALLO300T PO (16:27)
[2018-12-26 19:29] VITALS: BP_SYST 130; BP_SYST 165; BP_DIAS 68; BP_DIAS 94
[2018-12-26] MEDS: QUETIAPINE 200 MG TABLET PO SCH (20:07)
[2018-12-26] MEDS: SELEGILINE 5 MG CAPSULE PO SCH (20:07)
[2018-12-26] MEDS: PRIMIDONE 250 MG TABLET PO SCH (20:07)
[2018-12-26] MEDS: hydrOXyzine 50MG TABLET PO SCH (20:07)
[2018-12-26] MEDS: MED PO SCH (20:07)
[2018-12-26] MEDS: TRAZODONE 150MG TABLET PO SCH (20:08)
[2018-12-27] MEDS: ACETAMINOPHEN 325 MG TABLET PO PRN (05:01)
[2018-12-27] MEDS: LORazepam 0.5MG TABLET PO SCH (05:50)
[2018-12-27 07:29] VITALS: BP 113/64
[2018-12-27] MEDS: ALLOPURINOL 300 MG TABLET PO SCH (07:55)
[2018-12-27] MEDS: ACAMPROSATE 333 MG TABLET.DR PO SCH (07:55)
[2018-12-27] MEDS: FOLIC ACID 1 MG TABLET PO SCH (07:55)
[2018-12-27] MEDS: AMLODIPINE 5 MG TABLET PO SCH (07:55)
[2018-12-27] MEDS: THIAMINE 100MG TABLET PO SCH (07:55)
[2018-12-27] MEDS: CARBIDOPA/LEVODOPA 25 MG/100 MG TABLET PO SCH (07:55)
[2018-12-27] MEDS: TAMSULOSIN 0.4 MG CAP.ER.24H PO SCH (07:55)
== END 2018-12-27 10:05 | disposition home or self-care (01) | DRG 885 ==
LOC: 3E 12-06 12:34
PROVIDERS: ADMIT Psychiatry & Neurology Psychosomatic Medicine; ATTEND Psychiatry & Neurology Psychosomatic Medicine
DX: F31.30 Bipolar disorder, current episode depressed, mild or moderate severity, unspecified (principal); R45.851 Suicidal ideations; N40.1 Benign prostatic hyperplasia with lower urinary tract symptoms; R33.8 Other retention of urine; F10.220 Alcohol dependence with intoxication, uncomplicated; Y90.9 Presence of alcohol in blood, level not specified; M10.9 Gout, unspecified; G20 Parkinson's disease; F02.80 Dementia in other diseases classified elsewhere, unspecified severity, without behavioral disturbance, psychotic disturbance, mood disturbance, and anxiety; G40.909 Epilepsy, unspecified, not intractable, without status epilepticus; G47.00 Insomnia, unspecified; I10 Essential (primary) hypertension; J44.9 Chronic obstructive pulmonary disease, unspecified; Z79.899 Other long term (current) drug therapy; Z81.1 Family history of alcohol abuse and dependence; Z90.49 Acquired absence of other specified parts of digestive tract

== ENCOUNTER 2018-12-30 23:51 | Emergency (ER) | payer MEDICARE ==
[~2018-12-30] VITALS: Ht 188 cm; Wt 94.0 kg
[~2018-12-30 23:51] MED LIST changes: +LITH300C PO; +PRIM250T34 PO; +QUET200T PO; +SELE5CAP PO; +Tamsulosin PO
--- NOTE | 2018-12-31 00:01 | NUR ---
RECEIVED REPORT FROM TAY Thomas RN TO ASSUME CARE OF PT. AT THIS TIME.
--- NOTE | 2018-12-31 00:04 | NUR ---
DR. THOMPSON AT TO EVAL PT. AND DISCUSS POC. PT. REPORTS "I LOVE MYSELF! I WOULD NEVER WANT TO HURT MYSELF, I HAVE A 2 YEAR OLF HORSE THAT I LOVE AND HE IS GOING TO WIN THE WORLD. BUT I AM REALLY SAD BECAUSE PAUL WEINBERG AND I BROKE UP! I AM SO SAD, I AM JUST SO SAD! I NEED TO QUIT DRINKING." PT. DENIES SI/HI. REPORTS WAS D/C FROM ABOUT 3 DAYS AGO AND STOPPED TAKING MEDS R/T INABILITY TO PAY FOR THEM. PT. TALKING TO SELF NON-STOP.
--- NOTE | 2018-12-31 00:07 | NUR ---
PT ARRIVES TO ED VIA EMS FOR ACUTE PSHYCHOSIS. PT CALLED EMS DUE TO TAKING 20 SHOTS OF ETOH AND THEN TAKING 11 PILLS. PT REPORTED TO EMS THAT HE STOPPED TAKING HIS PSYCH MEDS LAST WEEK. PT WAS [facility]. PT ON ARRIVAL IS MANIC AND REPROTING HE LOVES HIMSELF AND WOULD NEVER HURT HIMSELF BECAUSE HE LOVES HIS HORSE AND NEVER WANT TO HURT HIMSELF. PT PLACED IN BED AND ED SUP INFORMED THAT PT NEEDS A PSYCHIATRIC SAFE ROOM. PT BELONGINGS PLACED IN A BAG AND PT IN GOWN. AWAITING FURTHER ORDERS.
[2018-12-31 00:21] LABS: BASOPHILS # (AUTO) 0.08 x10^3/uL (0-0.1); BASOPHILS % (AUTO) 1 % (0-1); EOSINOPHILS # (AUTO) 0.15 x10^3/uL (0-0.4); EOSINOPHILS % (AUTO) 1 % (1-7); LYMPHOCYTES # (AUTO) 2.85 x10^3/uL (1-3.4); LYMPHOCYTES % (AUTO) 20 % (22-44); MD NO; MEAN CORPUSCULAR HEMOGLOBIN 28.9 pg (27.5-34.5); MEAN CORPUSCULAR VOLUME 87.8 fL (81-97); MEAN PLATELET VOLUME 7.5 fL (7.4-10.4); MONOCYTES # (AUTO) 1.22 x10^3/uL (0.2-0.8); MONOCYTES % (AUTO) 8 % (2-9); NEUTROPHILS # (AUTO) 10.28 x10^3/uL (1.8-6.8); NEUTROPHILS % (AUTO) 71 % (42-75); PLATELET COUNT 498 x10^3/uL (130-400); RED BLOOD COUNT 5.25 x10^6/uL (4.38-5.82); RED CELL DISTRIBUTION WIDTH 16.8 % (9.4-14.8)
--- NOTE | 2018-12-31 00:32 | NUR ---
URINE SAMPLE COLLECTED AND SENT TO LAB. PT. DENIES NEEDS AT THIS TIME. ALL MONITORS IN PLACE. ALL SAFETY MEASURES MAINTAINED.
[2018-12-31 00:34] LABS: ALBUMIN 4.5 g/dL (3.4-5.0); ANION GAP 12 mmol/L (5-15); CALCIUM 8.5 mg/dL (8.5-10.1); CHLORIDE 110 mmol/L (98-107); CREATININE 1.45 mg/dL (0.7-1.3); SALICYLATE LEVEL 2.1 mg/dL (2.8-20.0)
[2018-12-31 00:47] LABS: AMPHETAMINE SCREEN, URINE Negative (Negative); BARBITURATE SCREEN, URINE Positive (Negative); BENZODIAZEPINE SCREEN, URINE Negative (Negative); CANNABINOID SCREEN, URINE Negative (Negative); COCAINE SCREEN, URINE Negative (Negative); METHADONE SCREEN, URINE Negative (Negative); OPIATE SCREEN, URINE Negative (Negative)
--- NOTE | 2018-12-31 00:57 | NUR ---
PT. REQUESTING TO LEAVE. STAETS "I JUST WANT TO GET HOME AND SLEEP IN MY OWN BED." PT. CONTINUES TO DENY SI/HI. DISCUSSED WITH DR. THOMPSON. PER DR. THOMPSON OK TO D/C PT. AT THIS TIME. BELONGINGS RETURNED TO PT. PT. IS AMBULATORY WITH STEADY GAIT.
[2018-12-31 01:04] VITALS: BP 134/64
== END 2018-12-31 01:05 | disposition home or self-care (01) ==
LOC: ED 12-31 00:46
DX: F10.129 Alcohol abuse with intoxication, unspecified (principal); Z72.9 Problem related to lifestyle, unspecified; G40.909 Epilepsy, unspecified, not intractable, without status epilepticus; J44.9 Chronic obstructive pulmonary disease, unspecified; F31.9 Bipolar disorder, unspecified; Z87.891 Personal history of nicotine dependence; I10 Essential (primary) hypertension; F41.1 Generalized anxiety disorder
CPT/HCPCS: 36415; 80048; 80307; 82040; 85025; 93005; 99284

== ENCOUNTER 2019-01-05 18:03 | Emergency (ER) | payer MEDICARE ==
[~2019-01-05] VITALS: Ht 188 cm; Wt 98.0 kg
--- NOTE | 2019-01-05 18:12 | NUR ---
pt bib ambulance "because I take 11 medications and then i drank 20 shots of alcohol. I feel like I'm going to ." +etoh odor. unclear when pt last took medications. pt manic, alternating between yelling and crying. pt states he misses his ex and attempts to call her. pt yelling and hitting head against bed, but not aggressive toward staff. pt is generally cooperative. denies si/hi. pt connected to monitors. vss. awaiting edmd assessment.
[2019-01-05] MEDS ORDERED: QUETIAPINE 100MG TABLET ONE (18:30)
[2019-01-05] MEDS ORDERED: QUETIAPINE 100MG TABLET PO ONE (18:30)
--- NOTE | 2019-01-05 18:37 | NUR ---
pt resting in room. vss. pt medicated per aug. water provided per request. no other needs at this time. mtf.
--- NOTE | 2019-01-05 18:55 | NUR ---
pt continues to state he wants to leave. pt was able to ambulate from ambulance to room with steady gait upon arrival. pt educated on ama procedures. pt's plan unknown at this time.
[2019-01-05] MEDS ORDERED: ZIPRASIDONE 20 MG INJ IM ONE ×4 (19:00→22:24)
--- NOTE | 2019-01-05 19:19 | NUR ---
pt hitting joseph, refusing to stay in room and continues to yell at staff. security called. edmd notified and medication orders received. security present for medication administration. pt refusing monitoring equipment and is refusing to put gown back on but is lying in gurney at this time. siderails up for safety. pt educated administration physician light use and instructed not to get up.
--- NOTE | 2019-01-05 20:39 | NUR ---
pt continues to attempt to bed out of bed despite education on fall risks. pt not steady on feet at this time. water provided per request. continues to refuse monitoring equipment.
--- NOTE | 2019-01-05 21:29 | NUR ---
REPORT RECIEVED FROM HUMBERTO WATERS. PT MOVED ROOMS AND CONTINUES TO TRY TO EXIT HIS BED. CHEMICAL RESTRAINTS HAVE FAILED. ER MD NOTIFIED. PT PLACED IN 2 POINT UPPER LIMB HARD LOCKING RESTRAINTS FOR HIS SAFTEY.
--- NOTE | 2019-01-05 21:29 | NUR ---
PT WITH UNSTEADY GAIT AND CONSIDERED A HIGH FALL RISK DUE TO MEDICATIONS AND ALCOHOL USE.
--- NOTE | 2019-01-05 21:30 | NUR ---
PT KEEPS TRYING TO GET OUT OF BED, WILL NOT LISTEN TO DIRECTIONS OF HOSPITAL STAFF. ER LAW ORDER FOR 2 PT UPPER LIMB RESTAINTS. SERCURITY NOTIFIED.
--- NOTE | 2019-01-05 21:48 | NUR ---
PT RESTING ON GURNEY. NO ACUTE DISTRESS NOTED. NO REQUESTS AT THIS TIME.
[2019-01-05 23:02] VITALS: BP 170/78
--- NOTE | 2019-01-05 23:16 | NUR ---
PT RESTRAINTS REMOVED. PT VERBALIZED UNDERSTANDING THAT HE WILL PRESS CALL LIGHT IF HE NEEDS ANYTHING BEFORE ATTEMPTING TO GET UP. ER MD NOTIFIED. PT IS CALM AND COOPERATIVE AT THIS TIME. PT LATERAL LYING, ATTEMPTING TO TAKE A NAP BEFORE TRIAL WALKING.
--- NOTE | 2019-01-06 00:22 | NUR ---
PT SLEEPING ON NELSON
--- NOTE | 2019-01-06 00:47 | NUR ---
PT SLEEPING ON NELSON
--- NOTE | 2019-01-06 02:15 | NUR ---
Patient/Caregiver given discharge instructions and they have confirmed that they understand the instructions. Patient ambulatory with steady gait.
== END 2019-01-06 02:16 ==
LOC: ED 20:46
DX: F10.220 Alcohol dependence with intoxication, uncomplicated (principal); F31.9 Bipolar disorder, unspecified; I10 Essential (primary) hypertension
CPT/HCPCS: 93005; 96372; 99283; J3486

== ENCOUNTER 2019-03-13 02:40 | Emergency (ER) | payer MEDICARE ==
[~2019-03-13] VITALS: Ht 188 cm; Wt 93.2 kg
[~2019-03-13 02:40] MED LIST changes: +SELE5TAB PO; -SELE5TAB2 PO
--- NOTE | 2019-03-13 03:07 | NUR ---
1. ROOM SECURED FOR SI/SA SAFETY. 2. 1:1 SITTER AT THE DOOR. 3. LAST DRINK "4 SHOTS OF VODKA TONIGHT". 4. BELONGINGS IN LOCKER. 5. THE PT ADMITS TO "TRYING TO HANG MYSELF LIKE ROBING YASMEEN". THE PT HAS BEEN COOPERATIVE W/ MUCH ENCOURAGEMENT. THE PT IS INTOXICATED.
[2019-03-13 03:09] LABS: BASOPHILS # (AUTO) 0.07 x10^3/uL (0-0.1); BASOPHILS % (AUTO) 1 % (0-1); EOSINOPHILS # (AUTO) 0.27 x10^3/uL (0-0.4); EOSINOPHILS % (AUTO) 3 % (1-7); LYMPHOCYTES # (AUTO) 3.12 x10^3/uL (1-3.4); LYMPHOCYTES % (AUTO) 39 % (22-44); MD NO; MEAN CORPUSCULAR HEMOGLOBIN 29.7 pg (27.5-34.5); MEAN CORPUSCULAR HGB CONC 33.1 g/dL (33.2-36.2); MEAN CORPUSCULAR VOLUME 89.8 fL (81-97); MEAN PLATELET VOLUME 7.3 fL (7.4-10.4); MONOCYTES # (AUTO) 0.76 x10^3/uL (0.2-0.8); MONOCYTES % (AUTO) 9 % (2-9); NEUTROPHILS # (AUTO) 3.79 x10^3/uL (1.8-6.8); NEUTROPHILS % (AUTO) 47 % (42-75); PLATELET COUNT 499 x10^3/uL (130-400); RED BLOOD COUNT 5.81 x10^6/uL (4.38-5.82); RED CELL DISTRIBUTION WIDTH 15.7 % (9.4-14.8)
--- NOTE | 2019-03-13 03:16 | NUR ---
REPORT GIVEN TO THE MENTAL HEALTH CONSULT PROFESSIONAL.
[2019-03-13 03:20] LABS: ALANINE AMINOTRANSFERASE 60 U/L (12-78); ALBUMIN 4.1 g/dL (3.4-5.0); ANION GAP 12 mmol/L (5-15); CALCIUM 8.3 mg/dL (8.5-10.1); CHLORIDE 108 mmol/L (98-107)
[2019-03-13 03:23] LABS: ALKALINE PHOSPHATASE 125 U/L (45-117); BILIRUBIN,TOTAL 0.5 mg/dL (0.2-1.0); CREATININE 1.38 mg/dL (0.7-1.3); TOTAL PROTEIN 8.3 g/dL (6.4-8.2)
--- NOTE | 2019-03-13 03:24 | NUR ---
BEING LOUD AND BELLIGERENT. " GET THE FUCKNIG BLANKET OFF ME! GET ME SOMETHING TO EAT! WERE THE FUCK IS THE TV!"
--- NOTE | 2019-03-13 03:25 | NUR ---
THE PT WAS TAKEN GRAM CRACKERS AND JUICE.
[2019-03-13 03:28] LABS: SALICYLATE LEVEL < 1.7 mg/dL (2.8-20.0)
[2019-03-13] MEDS ORDERED: CHLORDIAZEPOXIDE 25 MG CAPSULE ONE (03:30)
[2019-03-13] MEDS ORDERED: THIAMINE 100MG TABLET PO ONE (03:30)
[2019-03-13] MEDS ORDERED: THIAMINE 100MG TABLET ONE (03:30)
[2019-03-13] MEDS ORDERED: CHLORDIAZEPOXIDE 25 MG CAPSULE PO PRN (03:30)
[2019-03-13 03:47] LABS: AMPHETAMINE SCREEN, URINE Negative (Negative); BARBITURATE SCREEN, URINE Negative (Negative); BENZODIAZEPINE SCREEN, URINE Positive (Negative); CANNABINOID SCREEN, URINE Negative (Negative); COCAINE SCREEN, URINE Negative (Negative); METHADONE SCREEN, URINE Negative (Negative); OPIATE SCREEN, URINE Negative (Negative)
--- NOTE | 2019-03-13 04:05 | NUR ---
Received report, assumed patient care.
[2019-03-13 04:46] VITALS: BP 119/68
--- NOTE | 2019-03-13 05:18 | NUR ---
Patient resting sidelying right. Occassionally can be heard to be speaking words. Patient declines any needs at the moment.
--- NOTE | 2019-03-13 08:14 | NUR ---
REPORT FROM LIBERTY PAUL, ASSUMED CARE OF PT. PT RESTING ON JAJA AT THIS TIME, A Addendum: 03/13/19 at 0815 by VISHAL PT IS AOX4, GIVEN BREAKFAST TRAY, PT ATE ALL FOOD, SITTER IN PLACE. AWAITING TELE PSYCH EVAL
--- NOTE | 2019-03-13 09:37 | NUR ---
PT CONTINUES TO REST IN BED, BREATHALYZER REPEATED, PT NOW 0.100. SITTER IN PLACE, NAD NOTED
--- NOTE | 2019-03-13 10:31 | NUR ---
PT AMBULATED TO THE BR, PT WITH STEADY GAIT. PT BACK TO TING WILKINSON NOTED AT THIS TIME
--- NOTE | 2019-03-13 10:51 | NUR ---
THROUGHPUT RN: SPOKE W/ SALVATORE FROM SOC. NEW CONSULT PLACED. ATTEMPTED TO CALL PSYCH COSTUME MISTRESS CONTRACTED TO [facility] W/O SUCCESS. VOICEMAIL LEFT.
--- NOTE | 2019-03-13 11:27 | NUR ---
REPORT GIVEN TO SOC
--- NOTE | 2019-03-13 12:59 | NUR ---
THROUGHPUT RN: U 3E REFUSING PT AT THIS TIME. STATES PT IS WELL KNOWN ON FLOOR AND RECOMMENDS PT BE ADMITTED MEDICAL FOR POSSIBLE DETOX THEN THEY WOULD RE-EVALUATE PT. PT CURRENTLY NOT DETOXING OR SHOWING S/SX OF DETOX. SPOKE W/ JERAMY, PSYCH TRACK CAR OPERATOR AND ERP DR. HATHAWAY REGARDING SITUATION. TRACK CAR OPERATOR TO ASSESS PT AND DISCUSS IT W/ U DR. PERAZA.
--- NOTE | 2019-03-13 13:23 | NUR ---
PSYCH AUTOMATION SPECIALIST IN TO EVAL PT, SI PRECAUTIONS REMAIN IN PLACE
--- NOTE | 2019-03-13 13:43 | NUR ---
THROUGHPUT RN: MARY W/ JERAMY, PSYCH BUMPER STRAIGHTENER WHO STATES PT IS OKAY TO DC. LEGAL HOLD DECERTIFIED. PRIMARY RN AWARE.
--- NOTE | 2019-03-13 13:45 | NUR ---
PTS LEGAL HOLD LIFTED PER JERAMY SHABAZZ, PT TO BE MEDICATED AND D/C'D
[2019-03-13] MEDS ORDERED: TAMSULOSIN 0.4 MG CAP.ER.24H ONE (13:50)
[2019-03-13] MEDS ORDERED: CARBIDOPA/LEVODOPA 25 MG/100 MG TABLET PO ONE (14:00)
[2019-03-13] MEDS ORDERED: TAMSULOSIN 0.4 MG CAP.ER.24H PO ONE (14:00)
[2019-03-13] MEDS ORDERED: LITHIUM CARBONATE 300 MG CAPSULE PO ONE (14:00)
--- NOTE | 2019-03-13 14:16 | NUR ---
AWAITING MEDS FROM PHARMACY, PT THEN TO BE DC'D
--- NOTE | 2019-03-13 14:22 | NUR ---
PHARMACY CALLED FOR MEDICATIONS
--- NOTE | 2019-03-13 14:35 | NUR ---
Patient/Caregiver given discharge instructions and they have confirmed that they understand the instructions. Patient ambulatory with steady gait. PT GIVEN ADDITIONAL MEDICATION PRESCRIPTION PER JERAMY SHABAZZ. PT PROVIDED WITH TAXI VOUCHER. ALL BELONGIGNS RELEASED TO PT AND VERIFIED ALL WITH PT ON DISCHARGE. PT ESCORTED TO DC DESK
== END 2019-03-13 14:39 | disposition home or self-care (01) ==
LOC: ED 05:06
DX: F31.30 Bipolar disorder, current episode depressed, mild or moderate severity, unspecified (principal); F10.229 Alcohol dependence with intoxication, unspecified; F41.1 Generalized anxiety disorder; I10 Essential (primary) hypertension; G40.909 Epilepsy, unspecified, not intractable, without status epilepticus; Z72.9 Problem related to lifestyle, unspecified; Z87.891 Personal history of nicotine dependence; Y90.9 Presence of alcohol in blood, level not specified
CPT/HCPCS: 36415; 80053; 80178; 80307; 85025; 99284

== ENCOUNTER 2020-01-04 21:55 | Emergency (ER) | payer MEDICARE, OTHER ==
[~2020-01-04] VITALS: Ht 182.9 cm; Wt 104.5 kg
[~2020-01-04 21:55] MED LIST changes: -HYDR50TA13 PO; +HYDR50TA99 PO
[2020-01-04 21:57] VITALS: BP 153/85
--- NOTE | 2020-01-04 22:10 | NUR ---
Pt removed all cardiac leads, pulse ox, and bp cuff. Pt removed gown and put on t-shirt and cowboy hat. Pt appears agitiated, but AAOx4, ambulatory and steady gait as he paces room and enters into hallway. Pt easily redirected and returned to room. Pt requesting to leave and wants a taxi voucher. Dr. Neumann notified, breathalizer ordered.
--- NOTE | 2020-01-04 22:30 | NUR ---
Breathalizer conducted, 0.227% LINDY. Dr. Neumann notified. Pt is still agitated and pacing, wants to leave.
[2020-01-04 22:32] LABS: BASOPHILS # (AUTO) 0.12 x10^3/uL (0-0.1); BASOPHILS % (AUTO) 2 % (0-1); EOSINOPHILS # (AUTO) 0.07 x10^3/uL (0-0.4); EOSINOPHILS % (AUTO) 1 % (1-7); LYMPHOCYTES # (AUTO) 1.73 x10^3/uL (1-3.4); LYMPHOCYTES % (AUTO) 33 % (22-44); MD NO; MEAN CORPUSCULAR HEMOGLOBIN 30.8 pg (27.5-34.5); MEAN CORPUSCULAR HGB CONC 33.2 g/dL (33.2-36.2); MEAN PLATELET VOLUME 7.3 fL (7.4-10.4); MONOCYTES % (AUTO) 9 % (2-9); NEUTROPHILS # (AUTO) 2.88 x10^3/uL (1.8-6.8); NEUTROPHILS % (AUTO) 54 % (42-75); PLATELET COUNT 416 x10^3/uL (130-400); RED BLOOD COUNT 5.02 x10^6/uL (4.38-5.82)
--- NOTE | 2020-01-04 22:35 | NUR ---
Dr. Neumann declined to place pt on L2K and VORB Ativan 1mg IVP.
--- NOTE | 2020-01-04 22:36 | NUR ---
Advised by ER Charge Nurse that pt eloped through EMS entrance. Pt was seen heading right down the sidewalk near the stop sign. This nurse called to pt, who turned and appeared to make visual contact then turned around and continued to walk towards the stop sign and turned right. ER Charge Nurse advised, informed to call [facility] d/t pt w/ IV access in [facility].
[2020-01-04 22:42] LABS: ANION GAP 12 mmol/L (5-15); CALCIUM 8.8 mg/dL (8.5-10.1); CHLORIDE 109 mmol/L (98-107); SALICYLATE LEVEL 1.7 mg/dL (2.8-20.0)
--- NOTE | 2020-01-04 22:42 | NUR ---
Contacted [place] [employer] dispatch at [phone] and advised the dispatcher this pt eloped w/ IV access and was not placed on L2K hold. Dispatcher was provided w/ pt information required to identify if contact made. Dispatcher was advised if PD made contact that pt could have IV removed by any EMS unit or returned to ER. ER Charge Nurse advised.
[2020-01-04 22:50] LABS: ALANINE AMINOTRANSFERASE 74 U/L (12-78); ALKALINE PHOSPHATASE 120 U/L (45-117); BILIRUBIN,TOTAL 0.5 mg/dL (0.2-1.0); CREATININE 1.03 mg/dL (0.7-1.3)
[2020-01-04] MEDS ORDERED: LORazepam 2 MG/ML, 1ML IVPush ONE (23:00)
== END 2020-01-04 23:04 ==
LOC: ED 22:50
DX: S50.311A Abrasion of right elbow, initial encounter (principal); F10.229 Alcohol dependence with intoxication, unspecified; R19.7 Diarrhea, unspecified; R94.31 Abnormal electrocardiogram [ECG] [EKG]; I10 Essential (primary) hypertension; Y90.9 Presence of alcohol in blood, level not specified; W22.8XXA Striking against or struck by other objects, initial encounter; Y93.89 Activity, other specified; Y92.89 Other specified places as the place of occurrence of the external cause; Y99.8 Other external cause status
CPT/HCPCS: 36415; 80053; 80307; 83735; 84443; 85025; 93005; 99284

== ENCOUNTER 2020-01-05 22:24 | Emergency (ER) | payer SELFPAY ==
[~2020-01-05] VITALS: Ht 182.9 cm; Wt 84.0 kg
--- NOTE | 2020-01-05 22:29 | NUR ---
THIS PT WAS LUCIA POON FROM SENDING FACILITY, [facility]. PT WAS PLACED ON A LEGAL HOLD "BECAUSE OF STATEMENTS OF CONCERN BY HIS FRIEND THAT HE IS TAKING TOO MUCH ATIVAN." PT DENIES SI/HI. PT STATES "I LOVE MYSELF, I DON'T WANT TO HARM MYSELF, I LIVE ON A RANCH, I'M RICH, I'VE BEEN TALKING A LOT OF PILLS MY WHOLE LIFE TO HELP ME SLEEP." ERP TO BEDSIDE TO ASSESS PT, ERP D/C'D LEGAL HOLD. PT STATED HE WANTED TO GO HOME, THEN GO BACK TO [facility] WHERE THEY HAVE "GREAT FOOD, GREAT PEOPLE AND THERE'S A GYM WHERE WE CAN PLAY VOLLEYBALL."
== END 2020-01-05 22:51 | disposition home or self-care (01) ==
LOC: ED 22:40
DX: F31.74 Bipolar disorder, in full remission, most recent episode manic (principal); I10 Essential (primary) hypertension
CPT/HCPCS: 99283